=== PATIENT | female | born 1965 | race Caucasian/White ===

== ENCOUNTER → 2021-07-06 12:50 | Outpatient (BNVA) | payer MEDICAID, SELFPAY | PROVIDERS: Visit Provider Psychiatry & Neurology Psychiatry | DX: F41.9 Anxiety disorder, unspecified; F32.9 Major depressive disorder, single episode, unspecified; Z72.820 Sleep deprivation; H60.90 Unspecified otitis externa, unspecified ear | CPT/HCPCS: 99214 ==

== ENCOUNTER → 2021-07-20 16:00 | Outpatient (BNVA) | payer MEDICAID, SELFPAY | PROVIDERS: Visit Provider Family Medicine | DX: Z12.4 Encounter for screening for malignant neoplasm of cervix (principal) | CPT/HCPCS: 88175 ==

== ENCOUNTER 2021-10-08 17:37 | Emergency (ER) | payer MEDICAID, SELFPAY ==
[2021-10-08 17:46] VITALS: BP 147/73; PULSE 107; RESP 18; TEMP 36.6; O2SAT 95; BMI 40.2
[2021-10-08 19:02] LABS: Basophils # 0.1 10^3/uL (0.0-0.1); Basophils % 0.8 %; Eosinophils # 0.3 10^3/uL (0.0-0.8); Eosinophils % 3.7 %; Hematocrit 49.1 % (37.0-47.0); Hemoglobin 17.1 g/dL (11.5-15.3); Lymphocytes # 2.6 10^3/uL (0.8-4.8); Mean Corpuscular HGB Conc 34.8 g/dL (30.0-36.0); Mean Corpuscular Hemoglobin 30.5 pg (28.0-34.0); Mean Corpuscular Volume 87.5 fl (81-99); Mean Platelet Volume 9.9 fL (7.4-10.4); Monocytes # 0.7 10^3/uL (0.2-0.9); Monocytes % 7.8 %; Neutrophils % 57.4 %; Nucleated Red Blood Cells % 0 %; Platelet Count 273 10^3/cmm (130-400); Red Blood Count 5.61 10^6/uL (4.1-5.3); Red Cell Distribution Width 13.2 % (12.1-15.1); White Blood Count 8.7 10^3/uL (4.0-10.0)
[2021-10-08] MEDS: famotidine 20 mg/2 mL INJ IVP (19:03)
[2021-10-08 19:06] LABS: Erythrocyte Sedimentation Rate 19 mm/hr (0-15)
[2021-10-08 19:20] VITALS: BP 126/83; PULSE 65; RESP 20; O2SAT 99
[2021-10-08 19:20] LABS: Albumin Level 3.6 g/dL (3.5-5.2); Alkaline Phosphatase 93 IU/L (35-105); Blood Urea Nitrogen 9 mg/dL (6-20); C Reactive Protein 9.2 mg/L (0.0-4.9); Calcium 9.1 mg/dL (8.5-10.5); Carbon Dioxide 14 mmol/L (22-29); Chloride 101 mmol/L (98-107); Globulin 3.8 g/dL (1.3-4.6); Glomerular Filtration Rate 166.3 mL/min (90-130); Glucose 219 mg/dL (65-115); Osmolality Calculated 275 mOsm/kg (285-295); Sodium 130 mmol/L (136-145); Total Bilirubin 0.4 mg/dL (0.15-1.2); Total Protein 7.4 g/dL (6.6-8.7)
[2021-10-08 19:21] LABS: Alanine Aminotransferase 20 U/L (0-33); Anion Gap 19.1 (5-19); Aspartate Amino Transferase 18 U/L (0-32); Potassium 4.1 mmol/L (3.5-5.1)
--- NOTE | 2021-10-08 19:21 | PC.NURSE ---
pt refused visteral
[2021-10-08 19:41] LABS: INR 0.87 (0.8-1.2)
--- NOTE | 2021-10-08 20:01 | W.ED.WOUNDLC ---
HPI - Wound/Laceration General: Chief Complaint: Wound/Laceration Stated Complaint: Swelling in throat and sores on neck Time Seen by Provider: 10/08/21 17:48 Source: patient History of Present Illness: 55-year-old female who awoke this morning with a skin lesion on her neck on the anterior right side. It appeared to be an ulceration or a bite that she may have scratched during the night. Over the course of the day, the area became more red and swollen. She also developed a lump behind the right side of her jaw, and in the front part of her neck. She noticed a red line connecting the lump to the ulceration, which concerned her. No shortness of breath. She is handling her secretions fine. No tongue swelling. She notes that her neck is a bit itchy, and her upper extremities are as well. Onset (ago): hour(s) Location: neck Place: home Patient tetanus UTD: Yes Context: other Associated symptoms: Denies chills, fever(s), foreign body sensation, nausea, numbness or vomiting Review of Systems Const: Denies: fever(s) or chills Eyes: Denies: change in vision ENMT: Denies: throat pain, uvular edema or hoarseness Card: Denies: chest pain Resp: Denies: dyspnea or productive cough GI: Denies: nausea or vomiting Skin/Breast: Reports: rash, pruritus, erythema and skin tenderness PFSH ED PFSH: Medical History Allergic rhinitis due to allergen Anxiety and depression Asthma Barretts esophagus Diabetes type 2, uncontrolled Dyslipidemia Goiter Hiatal hernia History of hypertension Obesity (BMI 30-39.9) CORINNA (obstructive sleep apnea) Problems related to lack of adequate sleep Psychiatric care Smoker Women's annual routine gynecological examination Social History Smoking and tobacco status: current every day smoker cigarettes Packs smoked per day: 1 Years cigarettes smoked: 41 Physical Exam Const: COMMON NORMALS: no acute distress GENERAL APPEARANCE: cooperative HENMT: COMMON NORMALS: normocephalic and Normal external nose present HEAD & SCALP: normocephalic FACE & SINUS: normal facial exam NOSE: Normal external nose present and Normal nares present THROAT: no uvular edema Eye: COMMON NORMALS: Equal, round and reactive pupils present and EOMs intact bilaterally PUPIL: Yes Equal, round and reactive pupils present Neck/C-Spine: GENERAL: Yes lymphadenopathy Lymphadenopathy location: submental (anterior) and submandibular (Right) mobile and No tracheal deviation Chest: COMMONS NORMALS: normal inspection of the chest Resp: COMMON NORMALS: normal respiratory effort and No use of accessory muscles Cardio: COMMON NORMALS: regular rate and regular rhythm RATE: regular rate RHYTHM: regular rhythm Skin: NARRATIVE SKIN EXAM: Right anterior neck small skin ulceration with mild swelling surrounding. There is erythema surrounding as well. There is a right posterior submandibular lymph node that is minimally tender. It is mobile. There is an anterior node as well that is minimally tender and mobile. No signs of airway compromise. Course Vital Signs: Vital signs: Vital Signs Temperature 97.8 F 10/08/21 17:46 Pulse Rate 70 10/08/21 20:52 Respiratory Rate 20 H 10/08/21 20:52 Blood Pressure 149/86 10/08/21 20:52 Pulse Oximetry 98 10/08/21 20:52 MDM - Wound/Laceration Medical Decision Making See exam above. She requests no Benadryl, as the medication makes her extremely drowsy, and her legs twitchy. Atarax was ordered, but the patient declined this as well. She did receive Pepcid and Solu-Medrol with significant improvement in her symptoms. She notes that she can take cetirizine. This will be prescribed for her. Along with tapering dose of steroid to prevent rebound. Laboratory shows a white blood cell count of 8.7. Bicarbonate is low at 14. Sugar is 219. CRP is only 9. Sed rate is only 19. No thrombocytopenia or increase in INR. She will go home covered with antibiotics, on a decreasing dose of steroid, and cetirizine. Lab Data : 10/08/21 18:55 10/08/21 18:55 Laboratory Results WBC 8.7 10^3/uL (4.0-10.0) 10/08/21 18:55 RBC 5.61 10^6/uL (4.1-5.3) H 10/08/21 18:55 Hgb 17.1 g/dL (11.5-15.3) H 10/08/21 18:55 Hct 49.1 % (37.0-47.0) H 10/08/21 18:55 MCV 87.5 fl (81-99) 10/08/21 18:55 MCH 30.5 pg (28.0-34.0) 10/08/21 18:55 MCHC 34.8 g/dL (30.0-36.0) 10/08/21 18:55 RDW 13.2 % (12.1-15.1) 10/08/21 18:55 Plt Count 273 10^3/cmm (130-400) 10/08/21 18:55 MPV 9.9 fL (7.4-10.4) 10/08/21 18:55 Neut % (Auto) 57.4 % 10/08/21 18:55 Lymph % (Auto) 30.0 % 10/08/21 18:55 [facility] % (Auto) 7.8 % 10/08/21 18:55 Eos % (Auto) 3.7 % 10/08/21 18:55 Baso % (Auto) 0.8 % 10/08/21 18:55 Neut # (Auto) 5.00 10^3/uL (1.8-7.7) 10/08/21 18:55 Lymph # (Auto) 2.6 10^3/uL (0.8-4.8) 10/08/21 18:55 [facility] # (Auto) 0.7 10^3/uL (0.2-0.9) 10/08/21 18:55 Eos # (Auto) 0.3 10^3/uL (0.0-0.8) 10/08/21 18:55 Baso # (Auto) 0.1 10^3/uL (0.0-0.1) 10/08/21 18:55 Nucleated RBC % (auto) 0 % 10/08/21 18:55 Nucleated RBCs # 0.0 /100WBC 10/08/21 18:55 ESR 19 mm/hr (0-15) H 10/08/21 18:55 PT 12.10 SECONDS (12.1-14.9) 10/08/21 19:14 INR 0.87 (0.8-1.2) 10/08/21 19:14 Sodium 130 mmol/L (136-145) L 10/08/21 18:55 Potassium 4.1 mmol/L (3.5-5.1) 10/08/21 18:55 Chloride 101 mmol/L (98-107) 10/08/21 18:55 Carbon Dioxide 14 mmol/L (22-29) L 10/08/21 18:55 Anion Gap 19.1 (5-19) H 10/08/21 18:55 BUN 9 mg/dL (6-20) 10/08/21 18:55 Creatinine 0.4 mg/dL (0.5-0.9) L 10/08/21 18:55 GFR Calculation 166.3 mL/min (90-130) H 10/08/21 18:55 Glucose 219 mg/dL (65-115) H 10/08/21 18:55 Calculated Osmolality 275 mOsm/kg (285-295) L 10/08/21 18:55 Calcium 9.1 mg/dL (8.5-10.5) 10/08/21 18:55 Total Bilirubin 0.4 mg/dL (0.15-1.2) 10/08/21 18:55 AST 18 U/L (0-32) 10/08/21 18:55 ALT 20 U/L (0-33) 10/08/21 18:55 Alkaline Phosphatase 93 IU/L (35-105) 10/08/21 18:55 C-Reactive Protein 9.2 mg/L (0.0-4.9) H 10/08/21 18:55 Total Protein 7.4 g/dL (6.6-8.7) 10/08/21 18:55 Albumin 3.6 g/dL (3.5-5.2) 10/08/21 18:55 Globulin 3.8 g/dL (1.3-4.6) 10/08/21 18:55 Discharge Plan Discharge Patient Disposition: Home Clinical Impression: Lymphadenitis Condition: Stable Prescriptions: New Medrol (Frankie) 4 mg tablets,dose pack See Rx Instructions .ROUTE .COMPLEX Qty: 21 0RF Rx Instructions: orally per package directions Allergy Relief (cetirizine) 10 mg tablet 10 mg PO DAILY Qty: 10 0RF doxycycline hyclate 100 mg capsule 100 mg PO BID 7 Days Qty: 14 0RF No Action (DME) C-PAP supplies See Rx Instructions .Route .MEDSUPPLY Qty: 1 12RF Rx Instructions: As directed (DME) cpap supplies See Rx Instructions .Route .MEDSUPPLY Qty: 1 0RF Rx Instructions: needs water tub, tubing, resmed shallow face or floating face mask, rubber pieces, filters. (DME) poise pads See Rx Instructions .Route .MEDSUPPLY Qty: 100 0RF Rx Instructions: As directed (DME) Pharmacist Choice Strip See Rx Instructions .Route Qty: 50 5RF Rx Instructions: As directed. One touch ultra brand. cefdinir 300 mg capsule 300 mg PO BID Qty: 14 0RF Ed A-Hist DM 4-10-15 mg/5 mL liquid 5 ml PO Q6H PRN (Reason: cold symptoms) Qty: 160 0RF Bevespi Aerosphere 9-4.8 mcg HFA aerosol inhaler 2 puff inhalation BID 0RF albuterol 90 mcg/actuation aerosol inhalation DAILY PRN0RF fenugreek seed extract 500 mg capsule 3,000 mg PO TID 0RF pramoxine 1 % cream 1 applic topical QID 7 Days Qty: 340 0RF ciprofloxacin-dexamethasone [Ciprodex] 0.3-0.1 % drops,suspension 4 drp otic (ear) Q12H 0RF Label Comments: completed Rx Instructions: 340b alprazolam 0.5 mg tablet 0.5 mg PO BID PRN (Reason: anxiety) 30 Days Qty: 60 3RF bupropion HCl [Wellbutrin SR] 150 mg tablet sustained-release 12 hr 150 mg PO BID 30 Days Qty: 60 3RF zolpidem [Ambien] 10 mg tablet 15 mg PO .Bedtime 90 Days Qty: 135 3RF Discharge Orders: Discharge ED (Routine); Ordered 10/08/21 Ordered By: Earl Lind Referrals: Zoila Brennan MD [Primary Care Provider] - 1-3 days Patient Instructions: Lymphadenitis Activity Restrictions/Additional Instructions: Medications as directed. Return for worsening swelling despite treatment, shortness of breath, worsening rash or itching, fever greater than 100, any other concerning symptoms./ Coding Level of Care Code ED Full Stack Software Developer for Chg Fwd Exam Detailed
[2021-10-08] MEDS: doxycycline 100 mg Tablet PO (20:33)
--- NOTE | 2021-10-08 20:35 | PC.NURSE ---
pt wouldnt take the antibiotic wants to take it at home after eating dinner, offered vero but she has home made dinner
[2021-10-08 20:52] VITALS: BP 149/86; PULSE 70; RESP 20; O2SAT 98
== END 2021-10-08 20:52 | disposition home or self-care (01) ==
PROVIDERS: Emergency Provider Emergency Medicine; PCP Family Medicine
DX: I88.9 Nonspecific lymphadenitis, unspecified (principal); F17.210 Nicotine dependence, cigarettes, uncomplicated; E11.9 Type 2 diabetes mellitus without complications
CPT/HCPCS: 36415; 80053; 85025; 85610; 85651; 86140; 96374; 96375; 99284; J2930; J3490

== ENCOUNTER 2021-10-21 09:34 | Outpatient (CLI) | payer MEDICAID, SELFPAY ==
--- NOTE | 2021-10-21 09:44 | MM_ITS ---
WS: [id number] BILATERAL SCREENING DIGITAL BREAST TOMOSYNTHESIS MAMMOGRAM WITH CAD HISTORY: Z12.39 - Encounter for other screening for malignant neoplasm... COMPARISON: 04/05/2018 and 11/07/2015 Bilateral CC and MLO views with tomosynthesis and synthetic mammography submitted. Computer aided det ection analyzed. Breast composition: There are scattered areas of fibroglandular density. No suspicious masses, microc alcifications or architectural distortion. MM/[place] [id number] IMPRESSION: BI-RADS: 1-Negative FOLLOW UP: 1 Year Follow-up
== END 2021-10-21 09:35 | disposition home or self-care (01) ==
LOC: RADSHAW 09:38
PROVIDERS: PCP Family Medicine; Visit Provider Family Medicine
DX: Z12.31 Encounter for screening mammogram for malignant neoplasm of breast (principal)
CPT/HCPCS: 77063; 77067

== ENCOUNTER → 2021-11-02 10:20 | Outpatient (BNVA) | payer MEDICAID, SELFPAY | PROVIDERS: PCP Family Medicine; Visit Provider Internal Medicine Cardiovascular Disease | DX: I42.8 Other cardiomyopathies (principal); I10 Essential (primary) hypertension; E78.5 Hyperlipidemia, unspecified; J45.909 Unspecified asthma, uncomplicated; I44.7 Left bundle-branch block, unspecified; F17.210 Nicotine dependence, cigarettes, uncomplicated | CPT/HCPCS: 93005; 99204 ==

== ENCOUNTER → 2022-01-07 10:24 | Outpatient (BNVA) | payer MEDICAID, SELFPAY | PROVIDERS: PCP Family Medicine; Visit Provider Nurse Practitioner Family | DX: R59.9 Enlarged lymph nodes, unspecified (principal) | CPT/HCPCS: 85025 ==

== ENCOUNTER → 2022-01-11 13:56 | Outpatient (BNVA) | payer MEDICAID, SELFPAY | PROVIDERS: PCP Family Medicine; Visit Provider Internal Medicine Cardiovascular Disease | DX: I44.7 Left bundle-branch block, unspecified (principal); I42.8 Other cardiomyopathies; E78.5 Hyperlipidemia, unspecified; I10 Essential (primary) hypertension; G47.33 Obstructive sleep apnea (adult) (pediatric) | CPT/HCPCS: 99213; 99214 ==

== ENCOUNTER → 2022-01-13 15:36 | Outpatient (BNVA) | payer MEDICAID, SELFPAY | PROVIDERS: PCP Family Medicine; Visit Provider Surgery | DX: R22.30 Localized swelling, mass and lump, unspecified upper limb (principal) | CPT/HCPCS: 99203 ==

== ENCOUNTER 2022-02-04 06:02 | Outpatient (CLI) | payer MEDICAID, SELFPAY ==
--- NOTE | 2022-02-04 06:15 | US_ITS ---
WS: [id number] ULTRASOUND SOFT TISSUES LEFT axilla. HISTORY: Left Axillary Lymph Node COMPARISON: Mammogram 10/21/2021 and 04/05/2018 reviewed. TECHNIQUE: 2-D and color Doppler imaging is submitted. There is a complex mass with cystic and solid component in the LEFT axilla corresponding to the palpa ble abnormality. There is mild increased vascularity in the periphery and some the solid components. This mass extends over length of 3.4 cm x 3.7 x 2.3 cm. No additional abnormality identified. US/US soft tissue/extremity [id number] IMPRESSION: Complex cystic mass in the LEFT axilla. This may be an abnormal lymph node. May be reactive or neoplastic lymph node. As per history this lymph node is improv ing post antibiotic there. If this lymph node does not resolve biopsy or surgic al removal is recommended.
== END 2022-02-04 06:03 | disposition home or self-care (01) ==
LOC: RAD 06:05
PROVIDERS: PCP Family Medicine; Visit Provider Surgery
DX: R22.30 Localized swelling, mass and lump, unspecified upper limb (principal)
CPT/HCPCS: 76882

== ENCOUNTER 2022-02-07 06:12 | Outpatient (CLI) | payer MEDICAID, SELFPAY ==
--- NOTE | 2022-02-07 06:21 | USCV_ITS ---
Antonio Lantigua Age: 56 Gender: F : 1965 Exam Date: 02/07/2022 06:29 Ordering Phys: Miriam Fine MD ([email or web address]) Technologist: Exam Location: [facility] [place] Indication: cardiomyopathy BP: 130 / 80 HR: Rhythm: Sinus Technical Quality: Adequate MEASUREMENTS (Male / Female) Normal Values 2D ECHO LV Diastolic Diameter PLAX 3.1 cm 4.2 - 5.9 / 3.9 - 5.3 cm LV Systolic Diameter PLAX 2.3 cm IVS Diastolic Thickness 1.0 cm 0.6 - 1.0 / 0.6 - 0.9 cm IVS Systolic Thickness 1.1 cm LVPW Diastolic Thickness 1.0 cm 0.6 - 1.0 / 0.6 - 0.9 cm LVPW Systolic Thickness 1.5 cm LVOT Diameter 2.0 cm LV Ejection Fraction 2D Teich 56.1 % LV Ejection Fraction MOD 2C 65.2 % LV Ejection Fraction 2C AL 64.7 % LA Diameter 4.0 cm M-MODE Aortic Annulus Diameter 4.1 cm LA Ao Ratio MM 1.0 MV E Point Septal Separation 1.2 cm DOPPLER AV Peak Velocity 121.0 cm/s LVOT Peak Velocity 93.0 cm/s AV Area Cont Eq vti 2.6 cm squared AV Area Cont Eq pk 2.4 cm squared MV Area PHT 5.0 cm squared Mitral E to A Ratio 2.5 MV E' Velocity 54.0 cm/s Mitral E to MV E' Ratio 7.4 Mitral E to LV E' Lateral Ratio 9.1 Mitral E to LV E' Septal Ratio 6.2 TR Peak Velocity 140.0 cm/s TR Peak Gradient 7.8 mmHg TV Peak E Velocity 94.0 cm/s Right Atrial Pressure 3.0 mmHg Pulmonary Artery Systolic Pressu 10.8 mmHg PV Peak Velocity 88.0 cm/s FINDINGS Left Ventricle Normal left ventricular size and systolic function, EF 50 to 55% %( visual). Mild left ventricular hypertrophy. Abnormal septal motion consistent with conduction abnormality. Right Ventricle The right ventricle is normal in size and function. Right Atrium The right atrium is normal in size. Left Atrium The left atrium is normal in size. Mitral Valve Trace mitral valve regurgitation. Aortic Valve No gross abnormalities noted Tricuspid Valve Trace tricuspid valve regurgitation. Pulmonic Valve No gross abnormalities noted Pericardium Normal pericardium without effusion. Aorta Normal aortic annulus size. IVC Inferior vena cava not visualized. CONCLUSIONS Normal left ventricular size and systolic function, EF 61 %. Mild left ventricular hypertrophy. Abnormal septal motion consistent with conduction abnormality. Trace of mitral and tricuspid regurgitation. There is no pericardial effusion. There are no intracardiac masses. No previous study is available for comparison. Dr Miriam Fine MD FACC (Electronically Signed) Final Date: 07 February 2022 20:18 S
== END 2022-02-07 06:13 | disposition home or self-care (01) ==
LOC: RAD 06:12
PROVIDERS: PCP Family Medicine; Visit Provider Internal Medicine Cardiovascular Disease
DX: R06.00 Dyspnea, unspecified (principal); I42.9 Cardiomyopathy, unspecified; I08.1 Rheumatic disorders of both mitral and tricuspid valves
CPT/HCPCS: 93306

== ENCOUNTER 2022-02-22 07:21 | Emergency (ER) | payer MEDICAID, SELFPAY ==
[2022-02-22 07:24] VITALS: BP 155/84; PULSE 92; RESP 16; TEMP 36.4; O2SAT 95; BMI 35.8
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
--- NOTE | 2022-02-22 07:49 | ED_ITS ---
Documented by User: BENNIE Abdul 02/22/22 08:58 HPI - Extremity Problem General: Chief complaint: Extremity Injury, Lower Stated complaint: left foot injury Time Seen by Provider: 02/22/22 07:29 History of Present Illness: Patient is a 56-year-old female who comes to the ED with left foot injury. Injury occurred just prior to arrival. Patient says she was walking and accidentally kicked a box in her house and she heard an audible pop. She has pain in her second and third toes. Visible deformity and third toe. Patient took ibuprofen and Tylenol before coming to the ED. She states that her pain is currently 2 out of 10. Denies any other injuries. Associated symptoms: Deny chest pain, fever(s) or rash Review of Systems Const: Denies: fever(s), chills or fatigue Eyes: Denies: change in vision or eye discomfort ENMT: Denies: throat pain, odynophagia, nasal discharge or nasal congestion Card: Denies: chest pain, palpitations, edema, swelling of feet/ankles, dyspnea on exertion or orthopnea Resp: Denies: dyspnea, productive cough or non-productive cough GI: Denies: abdominal pain, nausea, vomiting, diarrhea, constipation or hematochezia : Denies: flank pain, dysuria or hematuria Musc: Reports: extremity pain (Left foot-second and third toes) and deformity (Left foot third toe); Denies: neck pain, back pain or extremity swelling Skin/Breast: Denies: rash or new lesions Neuro: Denies: headache(s), numbness in extremities or weakness in extremities PFS ED PFSH: Medical History Allergic rhinitis due to allergen Anxiety and depression Asthma Barretts esophagus Diabetes type 2, uncontrolled Dyslipidemia Goiter Hiatal hernia History of hypertension LBBB (left bundle branch block) Obesity (BMI 30-39.9) CORINNA (obstructive sleep apnea) Problems related to lack of adequate sleep Psychiatric care Smoker Women's annual routine gynecological examination Surgical History History of mandibular surgery History of placement of ear tubes History of repair of rectocele Hx of bladder repair surgery Hx of cholecystectomy Hx of hysterectomy Hx of oral surgery Family History Mother Anesthesia complication Cancer Lung disease Father CAD (coronary artery disease) Afib Diabetes Lung disease Grandmother Dementia Family/Other Lung disease Denies family history of Clotting disorder Chronic kidney disease (CKD) Suicide Bleeding disorder Stroke Social History Smoking and tobacco status: current every day smoker (1 ppd for 41 years. 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 Pets and animals: No Current gender identity: Female Female Reproductive History: Date of last menstrual period: 02/22/97 Physical Exam Const: COMMON NORMALS: no acute distress, patient oriented x3 and alert GENERAL APPEARANCE: cooperative and comfortable HENMT: COMMON NORMALS: normocephalic HEAD & SCALP: normocephalic MOUTH: Normal oral and palatal mucosa present THROAT: posterior oropharynx normal and uvula midline Neck/C-Spine: COMMON NORMALS: supple GENERAL: Yes normal visual inspection Resp: COMMON NORMALS: normal respiratory effort, No retractions, No use of accessory muscles and clear to auscultation bilaterally AUSCULTATION: clear to auscultation bilaterally Cardio: COMMON NORMALS: regular rate, regular rhythm, S1 normal heart sound present, S2 normal heart sound present, No gallops present (Cardio), No clicks present (Cardio), No murmurs present (Cardio) and Peripheral pulses 2+ throughout RATE: regular rate RHYTHM: regular rhythm HEART SOUNDS: S1 normal heart sound present and S2 normal heart sound present PERIPHERAL PULSES: Peripheral pulses 2+ throughout GI: COMMON NORMALS: Normal to inspection, nondistended, normoactive bowel sounds present, Soft to palpation, non-tender and no masses PALPATION: Yes Soft to palpation : COMMON NORMALS: Yes no CVA tenderness BLADDER/KIDNEY EXAM: Yes no CVA tenderness Back/Pelvis: COMMON NORMALS: no CVA tenderness Extremity: NARRATIVE EXTREMITY EXAM: Left foot?visible deformity seen on third toe. Tenderness to palpation of second and third toe. Neurovascular intact distally. Limited range of motion in toes due to pain. GENERAL: Yes normal exam except as noted and Yes deformity (Third toe) Neuro: COMMON NORMALS: patient oriented x3 SENSORIUM/ORIENTATION: Yes alert GAIT: Yes Normal gait present Skin: GENERAL SKIN EXAM: dry skin Procedures Orthopedic Fracture Reduction Fracture #1: Time Out Performed: Yes Side: left Fracture Reduction Location: toe (proximal phalanx) Analgesia: none (Patient declined any analgesia) Technique: direct manipulation Post Reduction X-rays Demonstrate: acceptable reduction Post-reduction neuro exam: intact Post-reduction vascular exam: intact Splint Applied: Yes (Aishwarya taped) Patient Tolerated Procedure: well Course Vital Signs: Vital signs: Vital Signs Temperature 97.5 F L 02/22/22 08:42 Pulse Rate 92 02/22/22 08:42 Respiratory Rate 16 02/22/22 08:42 Blood Pressure 155/84 02/22/22 08:42 Pulse Oximetry 95 02/22/22 08:42 MDM - Extremity (Nontraumatic) Medical Decision Making Patient is a 56-year-old female comes to the ED with injury to left foot. Patient kicked a box injuring second and third toe. Visible deformity seen in third toe. Neurovascular intact. Rest of exam is benign. X-ray of left foot showed an oblique fracture through proximal phalanx of third toe with some medial angulation. Patient did not want any analgesia and I reduced fracture with direct manipulation and then aishwarya tape second and third toe together. Post reduction x-rays performed and showed acceptable alignment. I placed an order with case management for patient be referred to podiatry for follow-up. Return to ED precautions given. Patient was put in a stiff soled shoe. Patient did not want any narcotics for pain and was discharged home and told to take [id number] Tylenol or ibuprofen as needed for pain. Patient understood and agreed with plan. Lab Data Radiology Impressions Foot X-Ray 02/22/22 08:06 IMPRESSION: Post reduction images with fracture fragments in proper position and alignment. Imaging Data Xray Ortho: My impression: Post reduction left foot x-ray?acceptable alignment. Radiologist's impression: Left foot x-ray. Oblique fracture through the proximal phalanx of the third toe with mild plantar and medial angulation Discharge Plan Discharge Patient Disposition: Home Clinical Impression: Fracture of toe of left foot Qualifiers: Encounter type: initial encounter Toe: lesser toe Fracture type: closed Phalanx: proximal Fracture alignment: displaced Qualified Code(s): S92.512A - Displaced fracture of proximal phalanx of left lesser toe(s), initial encounter for closed fracture Condition: Stable Prescriptions: No Action (DME) C-PAP supplies See Rx Instructions .Route .MEDSUPPLY Qty: 1 12RF Rx Instructions: As directed (DME) cpap supplies See Rx Instructions .Route .MEDSUPPLY Qty: 1 0RF Rx Instructions: needs water tub, tubing, resmed shallow face or floating face mask, rubber pieces, filters. (DME) poise pads See Rx Instructions .Route .MEDSUPPLY Qty: 100 0RF Rx Instructions: As directed alprazolam 0.5 mg tablet 0.5 mg PO BID PRN (Reason: anxiety) 30 Days Qty: 60 3RF bupropion HCl [Wellbutrin SR] 150 mg tablet sustained-release 12 hr 150 mg PO BID 30 Days Qty: 60 3RF zolpidem [Ambien] 10 mg tablet 15 mg PO .Bedtime 90 Days Qty: 135 3RF doxycycline hyclate 100 mg tablet 100 mg PO BID 7 Days Qty: 14 0RF amoxicillin-pot clavulanate 875-125 mg tablet 1 tab PO BID 10 Days Qty: 20 0RF acetaminophen [Tylenol] 325 mg tablet 325 mg PO QID PRN ibuprofen 200 mg tablet 200 mg PO Q6H PRN hawthorn 500 mg capsule 500 mg PO DAILY garlic Tablet 300 mg PO DAILY cholecalciferol (vitamin D3) 25 mcg (1,000 unit) capsule 25 mcg PO DAILY cinnamon bark [Cinnamon] 500 mg capsule 500 mg PO DAILY turmeric 400 mg capsule 400 mg PO DAILY vitamin K2 100 mcg capsule 100 mcg PO DAILY (DME) OneTouch Ultra Test Strip See Rx Instructions .ROUTE .COMPLEX Qty: 150 0RF Dose Instruction: test DIRECTED THREE TIMES DAILY Rx Instructions: test DIRECTED THREE TIMES DAILY Discharge Orders: Discharge ED (Routine); Ordered 02/22/22 Ordered By: Edgar Stephens Referrals: Zoila Brennan MD [Primary Care Provider] - Discharge Diet: Regular Discharge Activity: Limit activity as instructed and Use walker/crutches as instructed Patient Instructions: Toe Fracture (ED) Activity Restrictions/Additional Instructions: Follow-up with medical provider as directed. Case management regarding in the next several days to set up an appointment with podiatry for follow-up and further management of toe fracture. Wear stiff soled shoe when ambulating. Use ambulation device as needed to limit weightbearing due to pain the next couple days. Take [id number] Tylenol or ibuprofen for pain. Return to the ER or your medical provider if condition worsens. Please read and understand discharge instructions. Thank you for choosing [facility] for your healthcare needs today. Please realize this is an emergency room and that we are providing you with a medical screening exam and this may not be complete and all inclusive of all the testing and or work up that you may need to determine your ailment or severity of your illness. It is very important that you follow up as instructed or that you return to the Emergency Department should you have concerns or if your condition changes or worsens in any way. Coding Level of Care Code ED Senior Major Gifts Officer for Chg Fwd Exam Comprehensive Documented by User: Ramos Navarro DO 02/22/22 13:38 HPI - Extremity Problem General: Chief complaint: Extremity Injury, Lower Stated complaint: left foot injury Time Seen by Provider: 02/22/22 07:29 [facility] ED PFS: Medical History Allergic rhinitis due to allergen Anxiety and depression Asthma Barretts esophagus Diabetes type 2, uncontrolled Dyslipidemia Goiter Hiatal hernia History of hypertension LBBB (left bundle branch block) Obesity (BMI 30-39.9) CORINNA (obstructive sleep apnea) Problems related to lack of adequate sleep Psychiatric care Smoker Women's annual routine gynecological examination Surgical History History of mandibular surgery History of placement of ear tubes History of repair of rectocele Hx of bladder repair surgery Hx of cholecystectomy Hx of hysterectomy Hx of oral surgery Family History Mother Anesthesia complication Cancer Lung disease Father CAD (coronary artery disease) Afib Diabetes Lung disease Grandmother Dementia Family/Other Lung disease Denies family history of Clotting disorder Chronic kidney disease (CKD) Suicide Bleeding disorder Stroke Social History Smoking and tobacco status: current every day smoker (1 ppd for 41 years. 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 Patient kicked a box injuring second and third toe. Visible deformity seen in third toe. Neurovascular intact. Rest of exam is benign. X-ray of left foot showed an oblique fracture through proximal phalanx of third toe with some medial angulation. Patient did not want any analgesia and I reduced fracture with direct manipulation and then aishwarya tape second and third toe together. Post reduction x-rays performed and showed acceptable alignment. I placed an order with case management for patient be referred to podiatry for follow-up. Return to ED precautions given. Patient was put in a stiff soled shoe. Patient did not want any narcotics for pain and was discharged home and told to take [id number] Tylenol or ibuprofen as needed for pain. Patient understood and agreed with plan. Chart reviewed and patient discussed with midlevel. Agree with assessment and plan. Lab Data Radiology Impressions Foot X-Ray 02/22/22 08:06 IMPRESSION: Post reduction images with fracture fragments in proper position and alignment. Discharge Plan Discharge Patient Disposition: Home Clinical Impression: Fracture of toe of left foot Qualifiers: Encounter type: initial encounter Toe: lesser toe Fracture type: closed Phalanx: proximal Fracture alignment: displaced Qualified Code(s): S92.512A - Displaced fracture of proximal phalanx of left lesser toe(s), initial encounter for closed fracture Condition: Stable Prescriptions: No Action (DME) C-PAP supplies See Rx Instructions .Route .MEDSUPPLY Qty: 1 12RF Rx Instructions: As directed (DME) cpap supplies See Rx Instructions .Route .MEDSUPPLY Qty: 1 0RF Rx Instructions: needs water tub, tubing, resmed shallow face or floating face mask, rubber pieces, filters. (DME) poise pads See Rx Instructions .Route .MEDSUPPLY Qty: 100 0RF Rx Instructions: As directed alprazolam 0.5 mg tablet 0.5 mg PO BID PRN (Reason: anxiety) 30 Days Qty: 60 3RF bupropion HCl [Wellbutrin SR] 150 mg tablet sustained-release 12 hr 150 mg PO BID 30 Days Qty: 60 3RF zolpidem [Ambien] 10 mg tablet 15 mg PO .Bedtime 90 Days Qty: 135 3RF doxycycline hyclate 100 mg tablet 100 mg PO BID 7 Days Qty: 14 0RF amoxicillin-pot clavulanate 875-125 mg tablet 1 tab PO BID 10 Days Qty: 20 0RF acetaminophen [Tylenol] 325 mg tablet 325 mg PO QID PRN ibuprofen 200 mg tablet 200 mg PO Q6H PRN hawthorn 500 mg capsule 500 mg PO DAILY garlic Tablet 300 mg PO DAILY cholecalciferol (vitamin D3) 25 mcg (1,000 unit) capsule 25 mcg PO DAILY cinnamon bark [Cinnamon] 500 mg capsule 500 mg PO DAILY turmeric 400 mg capsule 400 mg PO DAILY vitamin K2 100 mcg capsule 100 mcg PO DAILY (DME) OneTouch Ultra Test Strip See Rx Instructions .ROUTE .COMPLEX Qty: 150 0RF Dose Instruction: test DIRECTED THREE TIMES DAILY Rx Instructions: test DIRECTED THREE TIMES DAILY Discharge Orders: Discharge ED (Routine); Ordered 02/22/22 Ordered By: Edgar Stephens Referrals: Zoila Brennan MD [Primary Care Provider] - Discharge Diet: Regular Discharge Activity: Limit activity as instructed and Use walker/crutches as instructed Patient Instructions: Toe Fracture (ED) Activity Restrictions/Additional Instructions: Follow-up with medical provider as directed. Case management regarding in the next several days to set up an appointment with podiatry for follow-up and further management of toe fracture. Wear stiff soled shoe when ambulating. Use ambulation device as needed to limit weightbearing due to pain the next couple days. Take [id number] Tylenol or ibuprofen for pain. Return to the ER or your medical provider if condition worsens. Please read and understand discharge instructions. Thank you for choosing [facility] for your healthcare needs today. Please realize this is an emergency room and that we are providing you with a medical screening exam and this may not be complete and all inclusive of all the testing and or work up that you may need to determine your ailment or severity of your illness. It is very important that you follow up as instructed or that you return to the Emergency Department should you have concerns or if your condition changes or worsens in any way. Coding Level of Care Code ED Senior Major Gifts Officer for Pete Bustos Exam Comprehensive
--- NOTE | 2022-02-22 08:06 | XR_ITS ---
WS: [id number] XR foot LT 2V [id number] REASON FOR EXAM: Post reduction x-rays FINDINGS: Angulation at the previously described fracture site in the proximal third phalanx has been reduced. Fracture fragments are in proper position and alignment. No additional fragments identified. XR/XR foot LT 2V [id number] IMPRESSION: Post reduction images with fracture fragments in proper position and alignment.
[2022-02-22 08:42] VITALS: BP 155/84; PULSE 92; RESP 16; TEMP 36.4; O2SAT 95
--- NOTE | 2022-02-22 14:49 | DCPLANNER ---
Addendum entered by Vivi Khoury 03/04/22 08:39: Patient had a follow up appointment scheduled with ortho - patient did attend appointment Addendum entered by Vivi Khoury 02/23/22 12:36: Patient has a follow up appointment scheduled for , February 24, 2022 at 10:[address] Holcomb. Clinic will call patient with appointment information. Original Note: consulting technical manager had message to schedule a follow up appointment for patient with ortho. consulting technical manager sent patients information to the front office staff at ortho. Patients information will be printed and reviewed. Clinic will call patient with appointment information.
== END 2022-02-22 08:44 | disposition home or self-care (01) ==
PROVIDERS: Emergency Provider Family Medicine; PCP Family Medicine
DX: S92.512A Displaced fracture of proximal phalanx of left lesser toe(s), initial encounter for closed fracture (principal); F17.210 Nicotine dependence, cigarettes, uncomplicated; E11.9 Type 2 diabetes mellitus without complications; E78.5 Hyperlipidemia, unspecified; I10 Essential (primary) hypertension; W22.8XXA Striking against or struck by other objects, initial encounter
CPT/HCPCS: 28515; 73620; 73630; 99283

== ENCOUNTER → 2022-03-24 13:05 | Outpatient (BNVA) | payer MEDICAID, SELFPAY | PROVIDERS: PCP Family Medicine; Visit Provider Podiatrist Foot & Ankle Surgery | DX: S92.505A Nondisplaced unspecified fracture of left lesser toe(s), initial encounter for closed fracture (principal); W22.09XA Striking against other stationary object, initial encounter | CPT/HCPCS: 73630 ==

== ENCOUNTER → 2022-04-27 10:26 | Outpatient (BNVA) | payer MEDICAID, SELFPAY | PROVIDERS: PCP Family Medicine; Visit Provider Podiatrist Foot & Ankle Surgery | DX: S92.502D Displaced unspecified fracture of left lesser toe(s), subsequent encounter for fracture with routine healing (principal); W22.8XXD Striking against or struck by other objects, subsequent encounter | CPT/HCPCS: 73630 ==

== ENCOUNTER 2022-09-05 18:55 | Emergency (ER) | payer MEDICAID, SELFPAY ==
[2022-09-05 19:03] VITALS: BP 158/93; PULSE 95; RESP 14; TEMP 36.9; O2SAT 96
--- NOTE | 2022-09-05 19:20 | W.ED.EYEPROB ---
HPI - Eye Problem General: Chief complaint: Eye Problems Stated complaint: R eye pain Time Seen by Provider: 09/05/22 19:09 History of Present Illness: 56-year-old female comes in today with complaints of swelling and drainage from the right eye. Patient reports increased swelling starting about 1:00 this afternoon to the eye. Patient has reported some sinusitis symptoms for the last 3 days. Patient appears nontoxic. Patient appears no acute distress. Patient does have a history of diabetes, sleep apnea, COPD, cardiomyopathy, asthma, hiatal hernia, and obesity. Associated symptoms: Denies fever(s), neck pain or vomiting Review of Systems Const: Denies: fever(s) Eyes: Reports: eye discharge ENMT: Reports: nasal congestion and other (Sinus pain) Card: Denies: chest pain Resp: Denies: dyspnea GI: Denies: vomiting Musc: Denies: neck pain or back pain Skin/Breast: Denies: rash PFSH ED PFSH: Medical History Allergic rhinitis due to allergen Anxiety and depression Asthma Barretts esophagus Diabetes type 2, uncontrolled Dyslipidemia Goiter Hiatal hernia History of hypertension LBBB (left bundle branch block) Obesity (BMI 30-39.9) CORINNA (obstructive sleep apnea) Problems related to lack of adequate sleep Psychiatric care Smoker Women's annual routine gynecological examination Surgical History History of mandibular surgery History of placement of ear tubes History of repair of rectocele Hx of bladder repair surgery Hx of cholecystectomy Hx of hysterectomy Hx of oral surgery Family History Mother Anesthesia complication Cancer Lung disease Father CAD (coronary artery disease) Afib Diabetes Lung disease Grandmother Dementia Family/Other Lung disease Denies family history of Clotting disorder Chronic kidney disease (CKD) Suicide Bleeding disorder Stroke Social History Smoking and tobacco status: current every day smoker cigarettes Packs smoked per day: 1 Years cigarettes smoked: 41 Alcohol intake: never Adopted: No Household members: spouse and children Housing: House Marital status: Highest education level completed: Some College, No Degree service: No Current occupational status: employed 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 Pets and animals: No Current gender identity: Female Physical Exam Const: COMMON NORMALS: alert HENMT: COMMON NORMALS: normocephalic HEAD & SCALP: normocephalic FACE & SINUS: sinus tenderness NOSE: Normal nares present MOUTH: Normal oral and palatal mucosa present Eye: COMMON NORMALS: Equal, round and reactive pupils present GENERAL EYE: normal light reflex ALIGNMENT: Yes alignment normal CONJUNCTIVA: Yes conjunctival abnormal positive right conjunctival injection CORNEA: Yes other (Chemosis right eye) PUPIL: Yes Equal, round and reactive pupils present DIRECT OPHTHALMOSCOPY: Yes normal light reflex Neck/C-Spine: COMMON NORMALS: full ROM Resp: COMMON NORMALS: normal respiratory effort Cardio: COMMON NORMALS: regular rate RATE: regular rate GI: COMMON NORMALS: non-tender Extremity: COMMON NORMALS: normal to inspection Neuro: SENSORIUM/ORIENTATION: Yes alert Skin: COMMON NORMALS: turgor normal GENERAL SKIN EXAM: turgor normal Course Vital Signs: Vital signs: Vital Signs Temperature 98.4 F 09/05/22 19:03 Pulse Rate 95 09/05/22 19:03 Respiratory Rate 14 09/05/22 19:03 Blood Pressure 158/93 09/05/22 19:03 Pulse Oximetry 96 09/05/22 19:03 Oxygen Delivery Me thod 09/05/22 19:03 MDM - Eye Problem Medical Decision Making 56-year-old female comes in today with complaints of redness and swelling to the right eye. On exam patient has ecchymosis to the right eye with yellowish discharge. No significant redness surrounding the eye. Minimal swelling is noted to the lids of the eye. Pupils are equal and reactive. Funduscopy exam was normal. Bilateral TMs show some fluid behind them. Patient has sinus tenderness bilaterally. Respirations are even lungs are clear to auscultation. Vital signs are normal. Differential diagnosis includes but not limited to chemosis, allergic reaction, rhinosinusitis. We will treat patient for a sinus infection with her complaints of sinus pain and discharge. Patient be covered with steroid/antibiotic to the right eye for secondary conjunctivitis. Patient reported understanding agreed to plan. Discharge Plan Discharge Patient Disposition: Home Clinical Impression: Acute rhinosinusitis, Chemosis of right conjunctiva Condition: Stable Prescriptions: New cefdinir 300 mg capsule 300 mg PO BID 10 Days Qty: 20 0RF No Action (DME) C-PAP supplies See Rx Instructions .Route .MEDSUPPLY Qty: 1 12RF Rx Instructions: As directed (DME) cpap supplies See Rx Instructions .Route .MEDSUPPLY Qty: 1 0RF Rx Instructions: needs water tub, tubing, resmed shallow face or floating face mask, rubber pieces, filters. (DME) poise pads See Rx Instructions .Route .MEDSUPPLY Qty: 100 0RF Rx Instructions: As directed acetaminophen [Tylenol] 325 mg tablet 325 mg PO QID PRN ibuprofen 200 mg tablet 200 mg PO Q6H PRN garlic Tablet 300 mg PO DAILY cholecalciferol (vitamin D3) 25 mcg (1,000 unit) capsule 25 mcg PO DAILY cinnamon bark [Cinnamon] 500 mg capsule 500 mg PO DAILY turmeric 400 mg capsule 400 mg PO DAILY vitamin K2 100 mcg capsule 100 mcg PO DAILY (DME) sleep apnea machine with supplies See Rx Instructions .Route .MEDSUPPLY Qty: 1 0RF Rx Instructions: As directed. pressure at 8.4. ramp time 0. epr time maritime officer. epr level 1. ab filter no. (DME) OneTouch Ultra Test Strip See Rx Instructions .ROUTE .COMPLEX Qty: 150 0RF Dose Instruction: test DIRECTED THREE TIMES DAILY Rx Instructions: test DIRECTED THREE TIMES DAILY (DME) blood-glucose meter [Accu-Chek Guide Glucose Meter] [facility] [place] See Rx Instructions .Route Qty: 1 0RF Rx Instructions: As directed zolpidem [Ambien] 10 mg tablet 15 mg PO .Bedtime 90 Days Qty: 135 3RF alprazolam 0.5 mg tablet 0.5 mg PO BID PRN (Reason: anxiety) 15 Days Qty: 30 0RF bupropion HCl [Wellbutrin SR] 150 mg tablet sustained-release 12 hr 150 mg PO BID 30 Days Qty: 60 0RF Discharge Orders: Discharge ED (Routine); Ordered 09/05/22 Ordered By: Pardeep Vallejo Referrals: Zoila Brennan MD [Primary Care Provider] - Discharge Diet: Usual diet Discharge Activity: Increase activity as tolerated Patient Instructions: Rhinosinusitis (ED), Conjunctivitis (ED) Activity Restrictions/Additional Instructions: Continue antibiotics cefdinir 300 mg 2 times a day for the next 7 to 10 days. Take Claritin 1 or 2 tablets twice a day to help with swelling around the eye. Drink plenty of water with medication. Continue eyedrops 1 drop to the affected eye 4 times a day while awake for the next 7 days. Return to ER for high fever greater than 100.4, increasing swelling and redness around the eye, severe pain, or new concerns. Coding Level of Care Code ED Managing Principal for Pete Bustos
[2022-09-05] MEDS: cefdinir 300 MG CAPSULE PO (19:41)
[2022-09-05] MEDS: loratadine 10 mg Tablet 20 MG PO (19:41)
[2022-09-05] MEDS: dexamethasone 4 mg Tablet 10 MG PO (19:41)
[2022-09-05] MEDS: famotidine 20 mg Tablet PO (19:41)
[2022-09-05] MEDS: neomycin-poly-dex Op 5 mL Btl 2 DROP EYE-RIGHT (19:58)
== END 2022-09-05 19:59 | disposition home or self-care (01) ==
PROVIDERS: Emergency Provider Nurse Practitioner Family; PCP Family Medicine
DX: H11.421 Conjunctival edema, right eye (principal); J01.90 Acute sinusitis, unspecified; F17.210 Nicotine dependence, cigarettes, uncomplicated; E11.9 Type 2 diabetes mellitus without complications; E78.5 Hyperlipidemia, unspecified; I10 Essential (primary) hypertension
CPT/HCPCS: 99283; J8540

== ENCOUNTER → 2022-10-06 14:41 | Outpatient (BNVA) | payer MEDICAID, SELFPAY | PROVIDERS: PCP Family Medicine; Visit Provider Nurse Practitioner Family | DX: J02.9 Acute pharyngitis, unspecified (principal); J32.9 Chronic sinusitis, unspecified; H10.9 Unspecified conjunctivitis | CPT/HCPCS: 87071; 87880 ==

== ENCOUNTER 2022-10-24 15:07 | Outpatient (CLI) | payer MEDICAID, SELFPAY ==
--- NOTE | 2022-10-24 15:00 | CT_ITS ---
WS: [id number] CT SINUSES TECHNIQUE: Noncontrast CT of the paranasal sinuses with coronal and sagittal reformatted images. CLINICAL INFORMATION: J32.9 - Chronic sinusitis, unspecified COMPARISON: None. DLP: 311.[address] scans at [facility] use at least one of these dose optimization techniques: automated e xposure control; mA and/or kV adjustment per patient size (includes targeted exams where dose is matc hed to clinical indication); or iterative reconstruction. FINDINGS: Mastoid air cells well aerated. Normal posterior nasopharynx and parapharyngeal fat. Fluid with secre tions in the RIGHT maxillary sinus compatible with sinusitis. 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 Prior bilateral maxillary antrostomies. Chronic appearing dehiscence of the inferior lateral wall of the RIGHT maxillary sinus likely due to prior trauma and p ostoperative changes. Additional postoperative fixation the anterior lateral LEFT maxillary sinus. Wire fixation along the anterior process of the maxilla bilaterally extending into the anterior maxil la. Frontal sinuses are well aerated. Mild mucosal thickening ethmoid air cells. Mild narrowing of th e ostiomeatal units RIGHT greater than LEFT with mild mucosal thickening. Sphenoid sinuses are patent . Nasal septum is midline likely due to prior septoplasty. Partially visualized intracranial contents are normal. CT/CT sinus wo con* [id number] IMPRESSION: 1. Evidence of prior maxillary antrostomies with septoplasty. Wire fixation in volving the anterior process of the maxilla bilaterally. This extends into the anterior maxilla. Additional fixation LEFT lateral maxillary sinus. 2. Hypoplastic RIGHT maxillary sinus with dehiscence of the inferior lateral w all likely due to prior postoperative changes or trauma. Sinusitis in the RIGHT maxillary sinus. 3. Paranasal sinuses are otherwise well aerated. Mild mucosal thickening in th e ethmoid air cells. 4. Mastoid air cells well aerated. 5. Prior septoplasty.
== END 2022-10-24 15:08 | disposition home or self-care (01) ==
LOC: RAD 15:10
PROVIDERS: PCP Family Medicine; Visit Provider Nurse Practitioner Family
DX: J32.0 Chronic maxillary sinusitis (principal); M26.02 Maxillary hypoplasia; Z98.890 Other specified postprocedural states
CPT/HCPCS: 70486

== ENCOUNTER 2022-11-20 13:09 | Emergency (ER) | payer MEDICAID, SELFPAY ==
--- NOTE | 2022-11-20 13:11 | XRR_ITS ---
PROCEDURE INFORMATION: Exam: XR Facial Bones, Minimum of 3 Views, Complete Exam date and time: 11/20/2022 1:52 PM Age: 57 years old Clinical indication: Injury or trauma; Fall; Blunt trauma (contusions or hematomas); Nose; Additional info: Possible broken nose TECHNIQUE: Imaging protocol: XR of the facial bones, minimum of 3 views. Complete exam. COMPARISON: CT sinus wo con* [id number] 10/24/2022 3:25 PM FINDINGS: Sinuses: Well aerated. No opacification. Bones/joints: No fracture. Soft tissues: Unremarkable. XR/XR facial bones min 3V* [id number] IMPRESSION: Unremarkable.
[2022-11-20 13:13] VITALS: BP 137/83; PULSE 106; RESP 14; TEMP 36.7; O2SAT 94; BMI 38.0
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
[2022-11-20] MEDS: ibuprofen 800 mg tablet PO (13:33)
[2022-11-20 13:38] VITALS: BP 132/87; PULSE 99; O2SAT 93
[2022-11-20 15:27] VITALS: BP 142/94; PULSE 92; O2SAT 90
== END 2022-11-20 15:31 | disposition home or self-care (01) ==
PROVIDERS: Emergency Provider Physician Assistant; PCP Family Medicine
DX: S00.33XA Contusion of nose, initial encounter (principal); Y04.2XXA Assault by strike against or bumped into by another person, initial encounter; Y92.009 Unspecified place in unspecified non-institutional (private) residence as the place of occurrence of the external cause
CPT/HCPCS: 70150; 99283

== ENCOUNTER → 2023-03-29 15:19 | Outpatient (BNVA) | payer MEDICAID, SELFPAY | PROVIDERS: PCP Family Medicine; Visit Provider Nurse Practitioner Family | DX: R10.11 Right upper quadrant pain; R10.811 Right upper quadrant abdominal tenderness; R10.31 Right lower quadrant pain; R10.813 Right lower quadrant abdominal tenderness; K52.9 Noninfective gastroenteritis and colitis, unspecified; J40 Bronchitis, not specified as acute or chronic; E78.5 Hyperlipidemia, unspecified; E11.65 Type 2 diabetes mellitus with hyperglycemia; J32.9 Chronic sinusitis, unspecified | CPT/HCPCS: 80053; 80061; 82150; 83036; 83690; 83721 ==

== ENCOUNTER 2023-04-04 06:06 | Outpatient (CLI) | payer MEDICAID, SELFPAY ==
--- NOTE | 2023-04-04 06:30 | US_ITS ---
WS: [id number] Complete ABDOMINAL ULTRASOUND HISTORY: right sided ABD pain COMPARISON: None available. Liver: 17.1 cm in length. Very mildly enlarged liver. There are areas of fatty sparing within the adeola er. No bile duct dilatation and no mass. Portal Vein: Normal hepatopetal flow with monophasic waveform. Gallbladder: Prior cholecystectomy prior CBD: 0.4 cm Pancreas: Normal size and echogenicity. Right kidney: 11.4 cm x 5.9 x 4.9 cm. Cortex: 1.2 cm. Normal size and echogenicity. No hydronephrosis or mass. Left kidney: 12.4 cm x 6.5 cm x 6.4 cm. Cortex: 1.2 cm. Normal size and echogenicity. No hydronephrosis or mass. Spleen: 10.5 cm in length. Normal. Aorta and IVC: Unremarkable abdominal aorta and IVC. Impression: 1. Prior cholecystectomy. 2. Top normal size liver with areas of fatty sparing. 3. No renal obstruction.
== END 2023-04-04 06:07 | disposition home or self-care (01) ==
PROVIDERS: PCP Family Medicine; Visit Provider Nurse Practitioner Family
DX: R10.11 Right upper quadrant pain (principal); R10.31 Right lower quadrant pain; R10.811 Right upper quadrant abdominal tenderness; R10.813 Right lower quadrant abdominal tenderness
CPT/HCPCS: 76700

== ENCOUNTER 2023-04-10 06:02 | Outpatient (CLI) | payer MEDICAID, SELFPAY ==
--- NOTE | 2023-04-10 06:30 | CT_ITS ---
WS: [id number] CT SINUSES TECHNIQUE: Noncontrast CT of the paranasal sinuses with coronal and sagittal reformatted images. CLINICAL INFORMATION: chronic sinusitis COMPARISON: 10/24/2022 DLP: 358.[address] scans at [facility] use at least one of these dose optimization techniques: automated e xposure control; mA and/or kV adjustment per patient size (includes targeted exams where dose is matc hed to clinical indication); or iterative reconstruction. FINDINGS: Prior bilateral maxillary antrostomies. Chronic appearing dehiscence of the inferior lateral wall of the RIGHT maxillary sinus likely due to prior trauma and postoperative changes. Additional postoperat sofi fixation the anterior lateral LEFT maxillary sinus. Wire fixation along the anterior process of t he maxilla bilaterally extending into the anterior maxilla. Fluid with secretions in the RIGHT maxillary sinus has improved compared to previous. Hypoplastic RIG HT maxillary sinus with evidence of prior posttraumatic deformity. Frontal sinuses are well aerated. Mild mucosal thickening ethmoid air cells. Mild narrowing of the ostiomeatal units RIGHT greater jesus n LEFT with mild mucosal thickening. Sphenoid sinuses are patent. Nasal septum is midline likely due to prior septoplasty. Mild mucosal thickening RIGHT mastoid tip. LEFT mastoid air cells are well aerated. Normal posterior nasopharynx and parapharyngeal fat. Partially visualized intracranial contents are normal. IMPRESSION: 1. Evidence of prior maxillary antrostomies with septoplasty. Wire fixation involving the anterior p rocess of the maxilla bilaterally. This extends into the anterior maxilla. 2. Additional fixation LEFT lateral maxillary sinus. Hypoplastic RIGHT maxillary sinus with dehiscen ce of the inferior lateral wall likely due to prior postoperative changes or trauma. 3. Improved sinusitis in the RIGHT maxillary sinus with mild mucosal thickening and a small mount of fluid. 4. Paranasal sinuses are otherwise well aerated. 5. Mild mucosal thickening RIGHT mastoid tip. 6. Prior septoplasty.
== END 2023-04-10 06:03 | disposition home or self-care (01) ==
LOC: RAD 06:03
PROVIDERS: PCP Family Medicine; Visit Provider Otolaryngology
DX: J32.0 Chronic maxillary sinusitis (principal); J32.9 Chronic sinusitis, unspecified; Z98.890 Other specified postprocedural states
CPT/HCPCS: 70486

== ENCOUNTER 2023-06-14 13:38 | Emergency (ER) | payer MEDICAID, SELFPAY ==
[2023-06-14 13:44] VITALS: BP 128/87; PULSE 102; RESP 18; TEMP 36.6; O2SAT 94; BMI 35.8
--- NOTE | 2023-06-14 13:51 | XR_ITS ---
WS: [id number] Chest with right rib detail, chest with right rib detail, 5 views, 06/14/2023 Clinical Data: injury Comparison: None. Findings: The lungs show no nodules, masses, or effusions. The heart is normal. No pneumonia or pneumothorax is seen. The aortic arch shows minimal calcification. The ribs are intact. No rib fractures seen. No subcutaneous emphysema is present. There are cholecystectomy clips in the right upper quadrant. Impression: Negative chest with right rib detail.
--- NOTE | 2023-06-14 14:30 | ED_ITS ---
HPI - General Adult General: Chief complaint: Abdominal Pain Stated complaint: abd pain right side Time Seen by Provider: 06/14/23 14:29 History of Present Illness: 57-year-old female comes in today for co mplaints of right anterior rib pain. Patient reports that she leaned over her chair to get something off the floor and felt several pops in her ribs. Since then patient has had pain and discomfort to the right anterior ribs. Patient appears nontoxic. Patient appears in no acute distress. Patient appears in mild to moderate pain. Review of Systems General: Reports: 10 or more systems reviewed and unremarkable except in HPI and below Musc: Reports: other (Right rib pain) PFS ED PFSH: Medical History Allergic rhinitis due to allergen Anxiety and depression Asthma Barretts esophagus Diabetes type 2, uncontrolled Dyslipidemia Goiter Hiatal hernia History of hypertension LBBB (left bundle branch block) Obesity (BMI 30-39.9) CORINNA (obstructive sleep apnea) Problems related to lack of adequate sleep Psychiatric care Smoker Women's annual routine gynecological examination Surgical History History of mandibular surgery History of placement of ear tubes History of repair of rectocele Hx of bladder repair surgery Hx of cholecystectomy Hx of hysterectomy Hx of oral surgery Family History Mother Anesthesia complication Cancer Lung disease Father CAD (coronary artery disease) Afib Diabetes Lung disease Grandmother Dementia Family/Other Lung disease Denies family history of Clotting disorder Chronic kidney disease (CKD) Suicide Bleeding disorder Stroke Social History Smoking and tobacco/nicotine status: current every day tobacco/nicotine user cigarettes Packs smoked per day: 1 Years cigarettes smoked: 41 Alcohol intake: never Substance/Drug Use: unknown Adopted: No Household members: spouse and children Housing: House Marital status: Highest education level completed: Some College, No Degree service: No Current occupational status: employed 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 Pets and animals: No Current gender identity: Female Physical Exam Const: COMMON NORMALS: alert HENMT: COMMON NORMALS: normocephalic HEAD & SCALP: normocephalic Neck/C-Spine: COMMON NORMALS: full ROM Resp: COMMON NORMALS: normal respiratory effort Cardio: COMMON NORMALS: regular rate RATE: regular rate Back/Pelvis: COMMON NORMALS: thoracic and lumbar spine normal to inspection Extremity: COMMON NORMALS: normal to inspection Neuro: SENSORIUM/ORIENTATION: Yes alert Skin: COMMON NORMALS: turgor normal GENERAL SKIN EXAM: turgor normal Course Vital Signs: Vital signs: Vital Signs Temperature 98 F 06/14/23 13:44 Pulse Rate 102 H 06/14/23 13:44 Respiratory Rate 18 06/14/23 13:44 Blood Pressure 128/87 06/14/23 13:44 Pulse Oximetry 94 06/14/23 13:44 Oxygen Delivery Me thod Room Air 06/14/23 13:44 MDM - General Adult Medical Decision Making 57-year-old female comes in today for evaluation of right rib pain. On exam there is no crepitus. Lungs are clear to auscultation. Abdomen soft nontender. Heart rates regular. No edema is noted in the extremities. Differential diagnosis includes but not limited to fracture, contusion, sprain. X-rays of the ribs and chest were normal. Reviewed exam with patient with recommendations for treatment and follow-up. Patient reported understanding. All radiology interpretation(s) finalized by discharge Discharge Plan Discharge Patient Disposition: Home Clinical Impression: Sprain of ribs, initial encounter Condition: Stable Prescriptions: No Action (DME) C-PAP supplies See Rx Instructions .Route .MEDSUPPLY Qty: 1 12RF Rx Instructions: As directed (DME) cpap supplies See Rx Instructions .Route .MEDSUPPLY Qty: 1 0RF Rx Instructions: needs water tub, tubing, resmed shallow face or floating face mask, rubber pieces, filters. (DME) poise pads See Rx Instructions .Route .MEDSUPPLY Qty: 100 0RF Rx Instructions: As directed acetaminophen [Tylenol] 325 mg tablet 325 mg PO QID PRN ibuprofen 200 mg tablet 200 mg PO Q6H PRN garlic Tablet 300 mg PO DAILY cholecalciferol (vitamin D3) 25 mcg (1,000 unit) capsule 25 mcg PO DAILY cinnamon bark [Cinnamon] 500 mg capsule 500 mg PO DAILY turmeric 400 mg capsule 400 mg PO DAILY vitamin K2 100 mcg capsule 100 mcg PO DAILY (DME) sleep apnea machine with supplies See Rx Instructions .Route .MEDSUPPLY Qty: 1 0RF Rx Instructions: As directed. pressure at 8.4. ramp time 0. 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 epr level 1. ab filter no. mupirocin 2 % ointment 1 applic topical TID Qty: 22 0RF amoxicillin-pot clavulanate 875-125 mg tablet 1 tab PO BID 10 Days Qty: 20 0RF (DME) OneTouch Ultra Test Strip See Rx Instructions .ROUTE .COMPLEX Qty: 150 3RF Dose Instruction: test DIRECTED THREE TIMES DAILY Rx Instructions: test DIRECTED THREE TIMES DAILY (DME) blood-glucose meter [Accu-Chek Guide Glucose Meter] Misc See Rx Instructions .Route Qty: 1 0RF Rx Instructions: As directed cetirizine [Zyrtec] 10 mg tablet 10 mg PO DAILY PRN (Reason: allergy symptoms) Qty: 30 5RF alprazolam 0.5 mg tablet 0.5 mg PO BID PRN (Reason: anxiety) 30 Days Qty: 60 4RF bupropion HCl [Wellbutrin SR] 150 mg tablet sustained-release 12 hr 150 mg PO BID 30 Days Qty: 60 4RF zolpidem [Ambien] 10 mg tablet 15 mg PO .Bedtime 90 Days Qty: 135 3RF Discharge Orders: Discharge ED (Routine); Ordered 06/14/23 Ordered By: Pardeep Vallejo Referrals: Zoila Brennan MD [Primary Care Provider] - Discharge Diet: Usual diet Discharge Activity: Increase activity as tolerated Patient Instructions: Rib Contusion (ED) Activity Restrictions/Additional Instructions: Drink plenty of water and fluids. Use acetaminophen and ibuprofen for pain. Use ice and heat for further pain relief. Follow-up with primary care for further instructions. Coding Level of Care Code ED Education Dean for Pete Bustos
== END 2023-06-14 15:14 | disposition home or self-care (01) ==
PROVIDERS: Emergency Provider Nurse Practitioner Family; PCP Family Medicine
DX: S23.41XA Sprain of ribs, initial encounter (principal); F17.210 Nicotine dependence, cigarettes, uncomplicated; E11.9 Type 2 diabetes mellitus without complications; E78.5 Hyperlipidemia, unspecified; I10 Essential (primary) hypertension; X50.1XXA Overexertion from prolonged static or awkward postures, initial encounter
CPT/HCPCS: 71101; 99283

== ENCOUNTER 2023-07-23 16:45 | Emergency (ER) | payer MEDICAID, SELFPAY ==
[2023-07-23] VITALS (11 sets, daily range): BP systolic 106–125; BP diastolic 62–80; PULSE 75–122; RESP 14–17; TEMP 37.1; O2SAT 93–97; BMI 36.0
[2023-07-23] MEDS: sodium chloride 0.9% 1,000 ML 999 ML IV (17:41)
[2023-07-23 17:46] LABS: Basophils % 0.3 %; Eosinophils % 0.3 %; Hematocrit 48.4 % (36-47); Lymphocytes # 0.5 10^3/uL (0.8-4.8); Lymphocytes % 3.3 %; Mean Corpuscular HGB Conc 33.9 g/dL (30-55); Mean Corpuscular Hemoglobin 30.4 pg (27-33); Mean Corpuscular Volume 89.8 fl (85-98); Mean Platelet Volume 9.6 fL (7.4-10.4); Monocytes # 0.4 10^3/uL (0.2-0.9); Monocytes % 2.5 %; Neutrophils # 13.31 10^3/uL (1.8-7.7); Neutrophils % 93.1 %; Nucleated Red Blood Cells % 0 %; Platelet Count 249 10^3/cmm (157-399); Red Blood Count 5.39 10^6/uL (3.85-5.65); Red Cell Distribution Width 13.1 % (12.1-15.1); White Blood Count 14.28 10^3/uL (3.29-11.43)
--- NOTE | 2023-07-23 17:53 | ED_ITS ---
Documented by User: Jacob Balbuena MD 07/23/23 18:03 HPI - Dizziness 2 General: Chief Complaint: Dizziness Stated Complaint: SYNCOPE Time Seen by Provider: 07/23/23 17:03 History of Present Illness: HPI Narrative: This patient is a 57-year-old white female who presents to the ER stating that she developed diarrhea this morning and then later developed nausea and vomiting. This afternoon when she was sitting on the toilet she became very diaphoretic and had a syncopal episode. She did not have any associated chest pain or shortness of breath. She has not noticed a fever. Patient does have a history of cardiomyopathy, [id number] diabetes, depression anxiety and asthma. Associated symptoms: Reports nausea, syncope and vomiting Review of Systems 2 General: Reports: 10 or more systems reviewed and unremarkable except in HPI and below Card: Reports: syncope GI: Reports: nausea, vomiting and diarrhea PFSH ED 2 PFSH: Medical History LBBB (left bundle branch block) Psychiatric care Women's annual routine gynecological examination Smoker Dyslipidemia History of hypertension Asthma Allergic rhinitis due to allergen Hiatal hernia Barretts esophagus CORINNA (obstructive sleep apnea) Goiter Diabetes type 2, uncontrolled Anxiety and depression Obesity (BMI 30-39.9) Problems related to lack of adequate sleep Surgical History History of placement of ear tubes Hx of oral surgery History of mandibular surgery Hx of cholecystectomy Hx of hysterectomy History of repair of rectocele Hx of bladder repair surgery Family History Mother Anesthesia complication Cancer Lung disease Father CAD (coronary artery disease) Afib Diabetes Lung disease Grandmother Dementia Family/Other Lung disease Denies family history of Clotting disorder Chronic kidney disease (CKD) Suicide Bleeding disorder Stroke Social History Smoking and tobacco/nicotine status: current every day tobacco/nicotine user cigarettes Packs smoked per day: 1 Years cigarettes smoked: 41 Alcohol intake: never Substance/Drug Use: unknown Adopted: No Household members: spouse and children Housing: House Marital status: Highest education level completed: Some College, No Degree service: No Current occupational status: employed 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 Eye: COMMON NORMALS: Equal, round and reactive pupils present, EOMs intact bilaterally and conjunctivae normal GENERAL EYE: appearance normal, both eyes and all related structures CONJUNCTIVA: Yes conjunctivae normal PUPIL: Yes Equal, round and reactive pupils present Neck/C-Spine: COMMON NORMALS: supple and no JVD Chest: COMMONS NORMALS: normal inspection of the chest Resp: COMMON NORMALS: normal respiratory effort and clear to auscultation bilaterally AUSCULTATION: clear to auscultation bilaterally Cardio: COMMON NORMALS: no JVD, regular rate, regular rhythm, No gallops present (Cardio), No murmurs present (Cardio) and No rub (Cardio) RATE: r egular rate RHYTHM: regular rhythm GI: COMMON NORMALS: Normal to inspection, nondistended, normoactive bowel sounds present, Soft to palpation and non-tender AUSCULTATION: Yes normoactive bowel sounds PALPATION: Yes Soft to palpation : COMMON NORMALS: Yes no CVA tenderness BLADDER/KIDNEY EXAM: Yes no CVA tenderness Back/Pelvis: COMMON NORMALS: no CVA tenderness and thoracic and lumbar spine normal to inspection Extremity: COMMON NORMALS: normal to inspection Neuro: COMMON NORMALS: patient oriented x3 and CN's II-XII intact bilaterally Psych: COMMON NORMALS: mental status grossly normal, Normal thought process present and cooperative THOUGHT PROCESS: Normal thought process present Skin: COMMON NORMALS: no rashes or lesions noted, turgor normal and no jaundice GENERAL SKIN EXAM: no rashes or lesions noted and turgor normal Course 2 Vital Signs: Vital signs: Vital Signs Temperature 98.7 F 07/23/23 19:25 Pulse Rate 75 07/23/23 19:25 Respiratory Rate 14 07/23/23 19:25 Blood Pressure 114/63 07/23/23 19:25 Pulse Oximetry 95 07/23/23 19:25 Oxygen Delivery Me thod Room Air 07/23/23 19:05 MDM - Dizziness Medical Decision Making Patient is currently getting IV fluid bolus. She declined Zofran. Her white count is 14.3. The rest of the labs are pending. Patient care transferred to Dr. Lind at shift change. Patient is stable. Lab Data 07/23/23 17:38 07/23/23 17:38 Laboratory Results WBC 14.28 10^3/uL (3.29-11.43) H 07/23/23 17:38 RBC 5.39 10^6/uL (3.85-5.65) 07/23/23 17:38 Hgb 16.40 g/dL (11.27-16.99) 07/23/23 17:38 Hct 48.4 % (36-47) H 07/23/23 17:38 MCV 89.8 fl (85-98) 07/23/23 17:38 MCH 30.4 pg (27-33) 07/23/23 17:38 MCHC 33.9 g/dL (30-55) 07/23/23 17:38 RDW 13.1 % (12.1-15.1) 07/23/23 17:38 Plt Count 249 10^3/cmm (157-399) 07/23/23 17:38 MPV 9.6 fL (7.4-10.4) 07/23/23 17:38 Neut % (Auto) 93.1 % 07/23/23 17:38 Lymph % (Auto) 3.3 % 07/23/23 17:38 [place] % (Auto) 2.5 % 07/23/23 17:38 Eos % (Auto) 0.3 % 07/23/23 17:38 Baso % (Auto) 0.3 % 07/23/23 17:38 Neut # (Auto) 13.31 10^3/uL (1.8-7.7) H 07/23/23 17:38 Lymph # (Auto) 0.5 10^3/uL (0.8-4.8) L 07/23/23 17:38 [place] # (Auto) 0.4 10^3/uL (0.2-0.9) 07/23/23 17:38 Eos # (Auto) 0.0 10^3/uL (0.0-0.8) 07/23/23 17:38 Baso # (Auto) 0.0 10^3/uL (0.0-0.1) 07/23/23 17:38 Nucleated RBC % (auto) 0 % 07/23/23 17:38 Nucleated RBCs # 0.0 /100WBC 07/23/23 17:38 Sodium 132 mmol/L (136-145) L 07/23/23 17:38 Potassium 4.4 mmol/L (3.5-5.1) 07/23/23 17:38 Chloride 97 mmol/L (98-107) L 07/23/23 17:38 Carbon Dioxide 20 mmol/L (22-29) L 07/23/23 17:38 Anion Gap 19.4 (5-19) H 07/23/23 17:38 BUN 16 mg/dL (6-20) 07/23/23 17:38 Creatinine 0.5 mg/dL (0.5-0.9) 07/23/23 17:38 GFR Calculation 127.6 mL/min (90-130) 07/23/23 17:38 Glucose 223 mg/dL (65-115) H 07/23/23 17:38 Calculated Osmolality 282 mOsm/kg (285-295) L 07/23/23 17:38 Calcium 8.6 mg/dL (8.5-10.5) 07/23/23 17:38 Total Bilirubin 0.4 mg/dL (0.15-1.2) 07/23/23 17:38 AST 10 U/L (0-32) 07/23/23 17:38 ALT 14 U/L (0-33) 07/23/23 17:38 Alkaline Phosphatase 106 U/L (35-105) H 07/23/23 17:38 Total Protein 7.2 g/dL (6.6-8.7) 07/23/23 17:38 Albumin 4.0 g/dL (3.5-5.2) 07/23/23 17:38 Globulin 3.2 g/dL (1.3-4.6) 07/23/23 17:38 No radiology studies performed this visit Discharge Plan Discharge Patient Disposition: Home Clinical Impression: Gastroenteritis, Syncope, Dehydration Condition: Stable Prescriptions: New ondansetron 4 mg tablet,disintegrating 4 mg PO Q6H PRN (Reason: nausea and vomiting) Qty: 14 0RF No Action (DME) C-PAP supplies See Rx Instructions .Route .MEDSUPPLY Qty: 1 12RF Rx Instructions: As directed (DME) cpap supplies See Rx Instructions .Route .MEDSUPPLY Qty: 1 0RF Rx Instructions: needs water tub, tubing, resmed shallow face or floating face mask, rubber pieces, filters. (DME) poise pads See Rx Instructions .Route .MEDSUPPLY Qty: 100 0RF Rx Instructions: As directed acetaminophen [Tylenol] 325 mg tablet 325 mg PO QID PRN ibuprofen 200 mg tablet 200 mg PO Q6H PRN garlic Tablet 300 mg PO DAILY cholecalciferol (vitamin D3) 25 mcg (1,000 unit) capsule 25 mcg PO DAILY cinnamon bark [Cinnamon] 500 mg capsule 500 mg PO DAILY turmeric 400 mg capsule 400 mg PO DAILY vitamin K2 100 mcg capsule 100 mcg PO DAILY (DME) sleep apnea machine with supplies See Rx Instructions .Route .MEDSUPPLY Qty: 1 0RF Rx Instructions: As directed. pressure at 8.4. ramp time 0. 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 epr level 1. ab filter no. mupirocin 2 % ointment 1 applic topical TID Qty: 22 0RF amoxicillin-pot clavulanate 875-125 mg tablet 1 tab PO BID 10 Days Qty: 20 0RF (DME) OneTouch Ultra Test Strip See Rx Instructions .ROUTE .COMPLEX Qty: 150 3RF Dose Instruction: test DIRECTED THREE TIMES DAILY Rx Instructions: test DIRECTED THREE TIMES DAILY (DME) blood-glucose meter [Accu-Chek Guide Glucose Meter] [facility] See Rx Instructions .Route Qty: 1 0RF Rx Instructions: As directed cetirizine [Zyrtec] 10 mg tablet 10 mg PO DAILY PRN (Reason: allergy symptoms) Qty: 30 5RF alprazolam 0.5 mg tablet 0.5 mg PO BID PRN (Reason: anxiety) 30 Days Qty: 60 4RF bupropion HCl [Wellbutrin SR] 150 mg tablet sustained-release 12 hr 150 mg PO BID 30 Days Qty: 60 4RF zolpidem [Ambien] 10 mg tablet 15 mg PO .Bedtime 90 Days Qty: 135 3RF Discharge Orders: Discharge ED (Routine); Ordered 07/23/23 Ordered By: Earl Lind Referrals: Zoial Brennan MD [Primary Care Provider] - 1-3 days Patient Instructions: Dehydration (ED), Syncope (ED), Gastroenteritis (ED), Opioid Safety, Pain Management Activity Restrictions/Additional Instructions: Clear liquid diet for the next 24 to 48 hours. Then advance as tolerated. Return for worsening vomiting or diarrhea, vomiting liquids, repeated episodes of syncope or passing out, other concerning symptoms. See your doctor this week. Coding Level of Care Code ED Warp Scouring Vat Tender for Chg Fwd Documented by User: Earl Lind DO 07/23/23 20:01 HPI - Dizziness 2 General: Chief Complaint: Dizziness Stated Complaint: SYNCOPE Time Seen by Provider: 07/23/23 17:03 PFSH ED 2 PFSH: Medical History LBBB (left bundle branch block) Psychiatric care Women's annual routine gynecological examination Smoker Dyslipidemia History of hypertension Asthma Allergic rhinitis due to allergen Hiatal hernia Barretts esophagus CORINNA (obstructive sleep apnea) Goiter Diabetes type 2, uncontrolled Anxiety and depression Obesity (BMI 30-39.9) Problems related to lack of adequate sleep Surgical History History of placement of ear tubes Hx of oral surgery History of mandibular surgery Hx of cholecystectomy Hx of hysterectomy History of repair of rectocele Hx of bladder repair surgery Family History Mother Anesthesia complication Cancer Lung disease Father CAD (coronary artery disease) Afib Diabetes Lung disease Grandmother Dementia Family/Other Lung disease Denies family history of Clotting disorder Chronic kidney disease (CKD) Suicide Bleeding disorder Stroke Social History Smoking and tobacco/nicotine status: current every day tobacco/nicotine user cigarettes Packs smoked per day: 1 Years cigarettes smoked: 41 Alcohol intake: never Substance/Drug Use: unknown Adopted: No Household members: spouse and children Housing: House Marital status: Highest education level completed: Some College, No Degree service: No Current occupational status: employed 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 She declined Zofran. Her white count is 14.3. The rest of the labs are pending. Patient care transferred to Dr. Lind at shift change. Patient is stable. Patient is not orthostatic, although heart rate did increase on rising even after fluid. She feels much improved. She has walked in the ER without complaint. She will be treated symptomatically. To return for worsening symptoms despite treatment. Lab Data 07/23/23 17:38 07/23/23 17:38 Laboratory Results WBC 14.28 10^3/uL (3.29-11.43) H 07/23/23 17:38 RBC 5.39 10^6/uL (3.85-5.65) 07/23/23 17:38 Hgb 16.40 g/dL (11.27-16.99) 07/23/23 17:38 Hct 48.4 % (36-47) H 07/23/23 17:38 MCV 89.8 fl (85-98) 07/23/23 17:38 MCH 30.4 pg (27-33) 07/23/23 17:38 MCHC 33.9 g/dL (30-55) 07/23/23 17:38 RDW 13.1 % (12.1-15.1) 07/23/23 17:38 Plt Count 249 10^3/cmm (157-399) 07/23/23 17:38 MPV 9.6 fL (7.4-10.4) 07/23/23 17:38 Neut % (Auto) 93.1 % 07/23/23 17:38 Lymph % (Auto) 3.3 % 07/23/23 17:38 [place] % (Auto) 2.5 % 07/23/23 17:38 Eos % (Auto) 0.3 % 07/23/23 17:38 Baso % (Auto) 0.3 % 07/23/23 17:38 Neut # (Auto) 13.31 10^3/uL (1.8-7.7) H 07/23/23 17:38 Lymph # (Auto) 0.5 10^3/uL (0.8-4.8) L 07/23/23 17:38 [place] # (Auto) 0.4 10^3/uL (0.2-0.9) 07/23/23 17:38 Eos # (Auto) 0.0 10^3/uL (0.0-0.8) 07/23/23 17:38 Baso # (Auto) 0.0 10^3/uL (0.0-0.1) 07/23/23 17:38 Nucleated RBC % (auto) 0 % 07/23/23 17:38 Nucleated RBCs # 0.0 /100WBC 07/23/23 17:38 Sodium 132 mmol/L (136-145) L 07/23/23 17:38 Potassium 4.4 mmol/L (3.5-5.1) 07/23/23 17:38 Chloride 97 mmol/L (98-107) L 07/23/23 17:38 Carbon Dioxide 20 mmol/L (22-29) L 07/23/23 17:38 Anion Gap 19.4 (5-19) H 07/23/23 17:38 BUN 16 mg/dL (6-20) 07/23/23 17:38 Creatinine 0.5 mg/dL (0.5-0.9) 07/23/23 17:38 GFR Calculation 127.6 mL/min (90-130) 07/23/23 17:38 Glucose 223 mg/dL (65-115) H 07/23/23 17:38 Calculated Osmolality 282 mOsm/kg (285-295) L 07/23/23 17:38 Calcium 8.6 mg/dL (8.5-10.5) 07/23/23 17:38 Total Bilirubin 0.4 mg/dL (0.15-1.2) 07/23/23 17:38 AST 10 U/L (0-32) 07/23/23 17:38 ALT 14 U/L (0-33) 07/23/23 17:38 Alkaline Phosphatase 106 U/L (35-105) H 07/23/23 17:38 Total Protein 7.2 g/dL (6.6-8.7) 07/23/23 17:38 Albumin 4.0 g/dL (3.5-5.2) 07/23/23 17:38 Globulin 3.2 g/dL (1.3-4.6) 07/23/23 17:38 Discharge Plan Discharge Patient Disposition: Home Clinical Impression: Gastroenteritis, Syncope, Dehydration Condition: Stable Prescriptions: New ondansetron 4 mg tablet,disintegrating 4 mg PO Q6H PRN (Reason: nausea and vomiting) Qty: 14 0RF No Action (DME) C-PAP supplies See Rx Instructions .Route .MEDSUPPLY Qty: 1 12RF Rx Instructions: As directed (DME) cpap supplies See Rx Instructions .Route .MEDSUPPLY Qty: 1 0RF Rx Instructions: needs water tub, tubing, resmed shallow face or floating face mask, rubber pieces, filters. (DME) poise pads See Rx Instructions .Route .MEDSUPPLY Qty: 100 0RF Rx Instructions: As directed acetaminophen [Tylenol] 325 mg tablet 325 mg PO QID PRN ibuprofen 200 mg tablet 200 mg PO Q6H PRN garlic Tablet 300 mg PO DAILY cholecalciferol (vitamin D3) 25 mcg (1,000 unit) capsule 25 mcg PO DAILY cinnamon bark [Cinnamon] 500 mg capsule 500 mg PO DAILY turmeric 400 mg capsule 400 mg PO DAILY vitamin K2 100 mcg capsule 100 mcg PO DAILY (DME) sleep apnea machine with supplies See Rx Instructions .Route .MEDSUPPLY Qty: 1 0RF Rx Instructions: As directed. pressure at 8.4. ramp time 0. 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 epr level 1. ab filter no. mupirocin 2 % ointment 1 applic topical TID Qty: 22 0RF amoxicillin-pot clavulanate 875-125 mg tablet 1 tab PO BID 10 Days Qty: 20 0RF (DME) OneTouch Ultra Test Strip See Rx Instructions .ROUTE .COMPLEX Qty: 150 3RF Dose Instruction: test DIRECTED THREE TIMES DAILY Rx Instructions: test DIRECTED THREE TIMES DAILY (DME) blood-glucose meter [Accu-Chek Guide Glucose Meter] Misc See Rx Instructions .Route Qty: 1 0RF Rx Instructions: As directed cetirizine [Zyrtec] 10 mg tablet 10 mg PO DAILY PRN (Reason: allergy symptoms) Qty: 30 5RF alprazolam 0.5 mg tablet 0.5 mg PO BID PRN (Reason: anxiety) 30 Days Qty: 60 4RF bupropion HCl [Wellbutrin SR] 150 mg tablet sustained-release 12 hr 150 mg PO BID 30 Days Qty: 60 4RF zolpidem [Ambien] 10 mg tablet 15 mg PO .Bedtime 90 Days Qty: 135 3RF Discharge Orders: Discharge ED (Routine); Ordered 07/23/23 Ordered By: Earl Lind Referrals: Zoila Brennan MD [Primary Care Provider] - 1-3 days Patient Instructions: Dehydration (ED), Syncope (ED), Gastroenteritis (ED), Opioid Safety, Pain Management Activity Restrictions/Additional Instructions: Clear liquid diet for the next 24 to 48 hours. Then advance as tolerated. Return for worsening vomiting or diarrhea, vomiting liquids, repeated episodes of syncope or passing out, other concerning symptoms. See your doctor this week. Coding Level of Care Code ED Warp Scouring Vat Tender for Pete Bustos
[2023-07-23 18:05] LABS: Alanine Aminotransferase 14 U/L (0-33); Alkaline Phosphatase 106 U/L (35-105); Anion Gap 19.4 (5-19); Aspartate Amino Transferase 10 U/L (0-32); Blood Urea Nitrogen 16 mg/dL (6-20); Calcium 8.6 mg/dL (8.5-10.5); Carbon Dioxide 20 mmol/L (22-29); Chloride 97 mmol/L (98-107); Globulin 3.2 g/dL (1.3-4.6); Glomerular Filtration Rate 127.6 mL/min (90-130); Glucose 223 mg/dL (65-115); Osmolality Calculated 282 mOsm/kg (285-295); Potassium 4.4 mmol/L (3.5-5.1); Sodium 132 mmol/L (136-145); Total Bilirubin 0.4 mg/dL (0.15-1.2); Total Protein 7.2 g/dL (6.6-8.7)
== END 2023-07-23 19:26 | disposition home or self-care (01) ==
PROVIDERS: Emergency Medicine; Emergency Provider Emergency Medicine; PCP Family Medicine
DX: R55 Syncope and collapse (principal); K52.9 Noninfective gastroenteritis and colitis, unspecified; E86.0 Dehydration; E78.5 Hyperlipidemia, unspecified; I10 Essential (primary) hypertension; E11.9 Type 2 diabetes mellitus without complications
CPT/HCPCS: 80053; 85025; 99284; J7030

== ENCOUNTER → 2023-12-12 11:29 | Outpatient (BNVA) | payer MEDICAID, SELFPAY | PROVIDERS: PCP Family Medicine; Visit Provider Nurse Practitioner Family | DX: F41.9 Anxiety disorder, unspecified (principal); F32.9 Major depressive disorder, single episode, unspecified; E78.5 Hyperlipidemia, unspecified; E11.65 Type 2 diabetes mellitus with hyperglycemia; Z86.79 Personal history of other diseases of the circulatory system; J32.4 Chronic pansinusitis; J01.90 Acute sinusitis, unspecified; H66.93 Otitis media, unspecified, bilateral; H65.03 Acute serous otitis media, bilateral; J01.40 Acute pansinusitis, unspecified | CPT/HCPCS: 80053; 80061; 83036; 83721; 85025 ==

== ENCOUNTER → 2024-04-23 09:38 | Outpatient (BNVA) | payer MEDICAID, SELFPAY | PROVIDERS: PCP Nurse Practitioner Family; Visit Provider Nurse Practitioner Family | DX: E11.65 Type 2 diabetes mellitus with hyperglycemia (principal); E04.9 Nontoxic goiter, unspecified; E78.5 Hyperlipidemia, unspecified | CPT/HCPCS: 80053; 80061; 83036; 83721; 84439; 84443; 84481; 85025; 86376 ==

== ENCOUNTER 2024-07-03 15:15 | Outpatient (CLI) | payer MEDICAID, SELFPAY ==
--- NOTE | 2024-07-03 15:00 | MM_ITS ---
WS: [id number] BILATERAL 3D TOMOSYNTHESIS DIGITAL SCREENING MAMMOGRAPHY WITH CAD CLINICAL INFORMATION: Z12.39 - Encounter for other screening for malignant neop... HISTORY: Screening mammogram. No current complaints. COMPARISON: 2021 TECHNIQUE: Bilateral CC and MLO views. FINDINGS: Scattered fibroglandular densities bilaterally. No suspicious focal mass, asymmetry, calcifications, or architectural distortion. No evidence of malignancy. A few incidental punctate calcifications RIGH T breast. MM/MM [facility] tomosynthesis [id number] IMPRESSION: DENSITY: There are scattered areas of fibroglandular density. BI-RADS: 2 - Benign. FOLLOW UP: 1 Year Follow-up Recommend return to annual screening mammography.
== END 2024-07-03 15:16 | disposition home or self-care (01) ==
LOC: MOBLMAM 15:26
PROVIDERS: PCP Nurse Practitioner Family; Visit Provider Nurse Practitioner Family
DX: Z12.31 Encounter for screening mammogram for malignant neoplasm of breast (principal); R92.323 Mammographic fibroglandular density, bilateral breasts; R92.1 Mammographic calcification found on diagnostic imaging of breast
CPT/HCPCS: 77063; 77067

== ENCOUNTER → 2024-08-28 15:28 | Outpatient (BNVA) | payer MEDICAID, SELFPAY | PROVIDERS: PCP Nurse Practitioner Family | DX: M77.32 Calcaneal spur, left foot (principal) | CPT/HCPCS: 73630 ==

== ENCOUNTER 2024-12-30 18:07 | Emergency (ER) | payer MEDICAID, SELFPAY ==
--- OUTSIDE RECORDS SUMMARY | 2012-01-20 06:15 | XMS_ITS | Continuity of Care Document ---
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 Name Role Phone Stephanie Woods MD Unavailable Unavailable Allergies, Adverse Reactions, Alerts Substance Reaction Status Criticality latex Active No Information diazepam Active No Information codeine Active No Information IODINE Active No Information Medications Medication Instructions Dosage Effective Dates (start - stop) Status Comments artificial tear (hypromellose) (PF) 0.3 % Eye Drops 1 gtt bid-qid ou - Active WELLBUTRIN SR (unknown strength) Not Available - Active PROGESTERONE (unknown strength) Not Available - Active AMBIEN (unknown strength) Not Available - Active MULTIVITAMINS (unknown strength) Not Available - Active ALBUTEROL SULFATE (unknown strength) Not Available - Active SYMBICORT (unknown strength) Not Available - Active SINGULAIR (unknown strength) Not Available - Active BENADRYL (unknown strength) Not Available - Active COREG (unknown strength) Not Available - Active FLOVENT HFA (unknown strength) Not Available - Active MAGNESIUM (unknown strength) Not Available - Active OMEGA-3 FISH OIL (unknown strength) Not Available - Active VITAMIN E (unknown strength) Not Available - Active PREVACID (unknown strength) Not Available - Active BIAXIN (unknown strength) Not Available - Active PRILOSEC (unknown strength) Not Available - Active MECLIZINE HCL (unknown strength) Not Available - Active ALBUTEROL SULFATE (unknown strength) Not Available - Active FLONASE (unknown strength) Not Available - Active prednisolone acetate 1 % Eye Drops, Susp 1 gtt tid OD until comft then taper - No Longer Active Procedures Procedure Date EYE EXAM ESTABLISHED PAT, MEDICAL EYE EXAM, NEW PATIENT MEDICAL 2 Advance Directives Directive Yes / No Effective Date File Name No Information Encounters Encounter Description Practice Location Reason(s) For Visit Diagnoses Date Provider Providers Copied on Encounter [facility], [address] [place] [address], [id number] , tel: [phone] [facility] Tear film insufficiency, unspecifiedConjuncti vitis, unspecifiedConjuncti vitis, unspecifiedTear film insufficiency, unspecified 2 Peggy Brown. [address] [place] [address], [address] [place] [address], [id number] , [place]. tel: [phone] Referring Provider: Stephanie Padgett, [address] [place] [address] [facility], [place], [address] . tel:[phone] [facility], [address] [place] [address], [id number] , tel:[phone] [facility] Other chronic allergic conjunctivitisOther chronic allergic conjunctivitis 2 Peggy Brown. [address] [place] [address], [address] [place] [address], [id number] , [place]. tel: [phone] Referring Provider: Stephanie Padgett, [address] [place] [address] [address], [place], [address] . tel:[phone] Family History Family Member Type Diagnosis Age At Onset parents Problem (finding) HBP Problem (finding) No Family history of Ca taracts Problem (finding) No Family history of Re tinal Disorders Problem (finding) No Family history of Ar thritis Problem (finding) No Family history of St rabismus Problem (finding) No Family history of He art Disease Problem (finding) No Family history of St roke Problem (finding) Family history of asthm a Problem (finding) No Family history of Gl aucoma Problem (finding) No Family hist ory of Macular Degeneration Problem (finding) No Family history of Re spiratory Disease Problem (finding) No Family history of Di abetes mellitus Payers Payer name Insurance type Covered alliance party ID Authoriza tion(s) [facility] [id number] Social History Type Description Quantity Date Captured Comments Alcohol Use Details Unknown Caffeine Use Details Unknown Tobacco Use Status No Information Smoking Status Current every day smoker Smoking Tobacco Use Details Cigarette: No Details Available Cigarette: No Details Available Sex Female Chief Complaint And Reason For Visit No Information Reason For Referral Reason For Referral No Information History Of Present Illness Encounter Date Complaint History Of Prese nt Illness No Information Functional Status Date Functional Assessmen t No Information Instructions Date Instruction Additional Infor joanie - 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 Related to Tear film insufficiency, unspecified Conjunctivitis, unsp ecified Bilateral. Condition: resolved. Tear film insufficiency, unspecified OU. Condition: stable. Symptoms: will treat with meds. - OU doing much better but still dry. Would recommend tears bid-qid. retina's look normal, no glaucoma, no cat, no armd. Related to Tear film insufficiency, unspecified - 2 week sle Related to Other chronic allergic conjunctivitis Other chronic allerg ic conjunctivitis OD. Condition: uncontrolled. Symptoms: will treat with meds. - Discussed that symptoms are probably allergy related or that she is sensitive to gentamycin. Patient to Dc and start prednisolone 1% tid until comfortable then taper bid for 2 days then qd for 2 days then dc. Instructed patient that suddenly stopping a steroid will creat inflammation to come back. Related to Other chronic allergic conjunctivitis Assessments Type Assessment Date No Information Patient Care Teams Name Effective Dates (start - stop) Status Members No Information
--- OUTSIDE RECORDS SUMMARY | 2023-12-07 09:00 | XMS_ITS | Continuity of Care Document ---
Author Organization [facility] Address [id number] [address] Phone Care Team Providers Care Recreation Programmer Name Role Phone Sang GIACOMO Argelia Aviles Unavailable Unavaila ble Allergies, Adverse Reactions, Alerts Substance Reaction Status Criticality BANDAGES, COHESIVE Active No Inform ation nickel Active No Information silver sulfadiazine Active No Infor mation diazepam Active No Information latex Active No Information povidone-iodine Active No Informati on codeine Active No Information IODINE Active No Information Medications Medication Instructions Dosage Effective Dates (start - stop) Status Comments amoxicillin 500 mg capsule take 1 capsule by oral route every 8 hours 500 MG - Active Wellbutrin SR 150 mg tablet, 12 hr sustained-release take 1 tablet by oral route 2 times every day 150 MG - Active Ambien 10 mg tablet take 1 tablet by ora l route every day at bedtime 10 MG - Active Xanax 0.5 mg tablet take 1 tablet by ora l route 3 times every day 0.5 MG - Active albuterol sulfate 1.25 mg/3 mL solution for nebulization inhale 3 milliliter by inhalation route 3- 4 times every day via nebulizer 1.25 MG - Active Procedures Procedure Date No Work Today/No Charge Post Op No Charge Comprehensive Oral Evaluatio n New Or Established Caries High Risk Exempt From Sealant Measure Bitewings Four Films Intraoral Periapical First Film Intraoral Periapical Each Additional Film Intraoral Periapical Each Additional Film Intraoral Periapical Each Additional Film Limited Oral Evaluation Problem Focused Extraction, Erupted Tooth Or Exposed Dary t (Elevati Resin-Based Composite Four Or More Surfaces, Pos Resin-Based Composite Four Or More Surfaces, Pos Oral Hygiene Instructions Nutritional Counseling For Control Of De ntal Disea Caries Moderate Risk Exempt From Sealant Measure Resin-Based Composite Four Or More Surfaces Or I Resin-Based Composite Four Or More Surfaces Or I Resin-Based Composite Three Surfaces, Posterior Bitewings Four Films Panoramic Film Intraoral Periapical First Film Intraoral Periapical Each Additional Film Intraoral Periapical Each Additional Film Intraoral Periapical Each Additional Film Comprehensive Oral Evaluatio n New Or Established Advance Directives Directive Yes / No Effective Date File Name No Information Encounters Encounter Description Practice Location Reason(s) For Visit Diagnoses Date Provider Providers Copied on Encounter [facility], [id number] [place], [place], [id number], [place] tel:[phone] [facility] Encounter for dental exam and cleaning w/o abnormal findings Sang Aviles. [address] [place], [id number] , [place]. tel:[phone] Referring Provider: Argelia Domínguez, [address] [place], [address] . tel:[phone] [facility], [id number] [place], [id number], [place] tel:[phone] [facility] Encounter for dental exam and cleaning w/o abnormal findings Danish Barragan. [address] [place] [address], [address], [place]. tel: [phone] Referring Provider: Yung Peng, [address] [place] [address], [address]. tel:[phone] [facility], [id number]Qv [place], [address], [place] tel:[phone] [facility] No Information Ray Holt. [address], [place], [address] , [place]. tel: [phone] Referring Provider: Jonathon Bell, [address] [place], [address] . tel:[phone] [facility], [id number], [address], [place] tel:[phone] [facility] No Information Sang Aviles. [address] [place], [place], [address] , [place]. tel: [phone] Referring Provider: Argelia Domínguez, [address] [place], [address] . tel:[phone] [facility], [id number], [address], [place] tel:[phone] [facility] No Information Sang Aviles. [address] [place], [place], [address] , [place]. tel:[phone] Referring Provider: Argelia Domínguez, [address] [place], [address] . tel:[phone] [facility], [id number] [place], [address], [place] tel:[phone] [facility] Encounter for dental exam and cleaning w/o abnormal findings Latasha Shaffer. [address] [place], [place], [address] , [place]. tel:[phone] Referring Provider: Edmund Pagan, [address] [place], [address] . tel:[phone] [facility], [id number] [id number], [address], [place] tel:[phone] [facility] No Information Latasha Shaffer. [address] [facility] [place], [address] , [place]. tel:[phone] Referring Provider: Edmund Pagan, [address] [place], [address] . tel:[phone] [facility], [id number] [place]2390[place], [address], [place] tel:[phone] [facility] No Information Latasha Shaffer. [address] [facility] [place], [address] , [place]. [phone] Referring Provider: Edmund Pagan, [address] [place], [address] . tel:[phone] Family History Family Member Type Diagnosis Age At Onset No Information Payers Payer name Insurance type Covered green party ID Evelio georges(s) [facility] Medicaid [id number] Social History Type Description Quantity Date Captured Comments Alcohol Use Details No Caffeine Use Details Unknown Tobacco Use Status Smoking Status No Information Sex Female Sexual Orientation Heterosexual Gender Identity Female Chief Complaint And Reason For Visit No Information Reason For Referral Reason For Referral No Information Plan Of Treatment Date Type Action Status Goal Tobacco cessation counseling completed Goal Tobacco cessation counseling completed Goal Tobacco cessation counseling completed Goal Tobacco cessation counseling completed History Of Present Illness Encounter Date Complaint History Of Prese nt Illness No Information Functional Status Date Functional Assessmen t No Information Instructions Date Instruction Additional Infor joanie Lifestyle education Related to D ental Examination Lifestyle education Related to D ental Examination Lifestyle education Related to D ental Examination Lifestyle education Related to D ental Examination Assessments Type Assessment Date No Information Patient Care Teams Name Effective Dates (start - stop) Status Members No Information
--- NOTE | 2024-12-30 18:08 | ECG_ITS ---
[facility] Date: 2024-12-30 Pat Name: Antonio Lantigua Department: Room: Gender: Female Health Data Administrator: : 1965 Requested By: Supa Castaneda Order Number: [id number] Quinteros MD: Jesus Braga M.D. Measurements Intervals [place] Rate: 102 P: 57 WI: 136 QRS: -14 QRSD: 139 T: 127 QT: 380 QTc: 495 Interpretive Statements SINUS TACHYCARDIA LEFT BUNDLE BRANCH BLOCK [120+ ms QRS DURATION, 80+ ms Q/S IN V1/V2, 85+ ms R IN I/aVL/V5/V6] No previous ECG available for comparison Electronically Signed On 01-02-2025 09:06:00 CDT by Jesus Braga M.D. [id number]
[2024-12-30 18:12] VITALS: BP 117/81; PULSE 98; RESP 16; TEMP 36.7; O2SAT 96; BMI 36.9
[2024-12-30 20:57] LABS: Hematocrit 52.3 % (36-47); Hemoglobin 18.00 g/dL (11.27-16.99); Mean Corpuscular HGB Conc 34.4 g/dL (30-55); Mean Corpuscular Hemoglobin 30.5 pg (27-33); Mean Corpuscular Volume 88.5 fl (85-98); Nucleated Red Blood Cells % 0 %; Platelet Count 298 10^3/cmm (157-399); Red Blood Count 5.91 10^6/uL (3.85-5.65); White Blood Count 12.77 10^3/uL (3.29-11.43)
--- NOTE | 2024-12-30 21:10 | W.ED.SYNCOPE ---
HPI - Syncope General: Chief Complaint: Syncope Stated Complaint: Near Syncope Time Seen by Provider: 12/30/24 20:12 Source: patient Mode of arrival: ambulatory Limitations: no limitations History of Present Illness: 59-year-old female states that around 2 this afternoon she was having a bowel movement states she had a sharp pain in her abdomen during the bowel movement and felt like she was in a pass out states she had to lay on the floor states that abdominal pain is went away she still has some slight lightheadedness she denies any chest pain denies any headache she has had no vomiting or diarrhea. Associated symptoms: Reports abdominal pain and nausea; Deny chest pain, fever(s) or headache(s) Related Data Home Medications ?Medication ?Instructions ?Recorded ?Confirmed acetaminophen 325 mg tablet 325 mg PO QID PRN 01/11/22 10/28/24 (Tylenol) cholecalciferol (vitamin D3) 25 25 mcg PO DAILY 01/11/22 10/28/24 mcg (1,000 unit) capsule cinnamon bark 500 mg capsule 500 mg PO DAILY 01/11/22 10/28/24 (Cinnamon) garlic 300 mg PO DAILY 01/11/22 10/28/24 ibuprofen 200 mg tablet 200 mg PO Q6H PRN 01/11/22 10/28/24 turmeric 400 mg capsule 400 mg PO DAILY 01/11/22 10/28/24 vitamin K2 100 mcg capsule 100 mcg PO DAILY 01/11/22 10/28/24 Previous Rx's ?Medication ?Instructions ?Recorded C-PAP supplies #1 ea 02/08/21 cpap supplies #1 ea 07/07/21 poise pads #100 ea 07/07/21 sleep apnea machine with supplies #1 ea 03/23/22 blood sugar diagnostic (OneTouch #150 strips 03/29/23 Ultra Test strips) blood-glucose meter (Accu-Chek #1 ea 03/29/23 Guide Glucose Meter) ondansetron 4 mg disintegrating 4 mg PO Q6H PRN nausea and 07/23/23 tablet vomiting #14 tabs alprazolam 0.5 mg tablet 0.5 mg PO BID PRN anxiety 30 days 12/30/23 #60 tabs mupirocin 2 % topical ointment 1 applic topical TID #22 grams 02/22/24 triamcinolone acetonide 0.1 % 1 applic topical BID bug bites #30 03/23/24 topical cream grams zolpidem 10 mg tablet (Ambien) 15 mg (1.5 x 10 mg) PO .Bedtime 30 10/11/24 days #45 tabs mupirocin 2 % topical ointment 1 applic topical TID #15 grams 10/28/24 (Centany) prednisone 10 mg tablets in a dose See Rx Instructions PO PER PKG DIR 10/28/24 pack #21 ea sulfamethoxazole 800 1 tab PO BID #20 tabs 10/28/24 mg-trimethoprim 160 mg tablet (Bactrim DS) cetirizine 10 mg tablet See Rx Instructions .Route 11/21/24 .COMPLEX #30 tabs bupropion HCl 150 mg tablet,12 hr 150 mg PO BID 30 days #60 tabs 12/30/24 sustained-release (Wellbutrin SR) Allergies Allergy/AdvReac Type Severity Reaction Status Date / Time copper Allergy Severe velez skin Verified 10/28/24 11:21 povidone-iodine (From Allergy Severe rash Verified 10/28/24 11:21 Betadine) diphenhydramine (From Allergy Intermediate Speed Verified 10/28/24 11:21 Benadryl) diazepam (From Valium) Allergy shake Verified 10/28/24 11:21 latex Allergy velez skin Verified 10/28/24 11:21 nickel Allergy removes Verified 10/28/24 11:21 skin with the jewelry codeine AdvReac stomach Verified 10/28/24 11:21 issues iodine AdvReac vomit Verified 10/28/24 11:21 Review of Systems Const: Denies: fever(s), chills, body aches or change in appetite ENMT: Denies: throat pain or dental pain Card: Reports: pre-syncope; Denies: chest pain Resp: Denies: dyspnea GI: Reports: abdominal pain and nausea; Denies: vomiting or diarrhea Musc: Denies: neck pain or back pain Skin/Breast: Denies: rash Neuro: Denies: headache(s) PFSH ED PFSH: Medical History LBBB (left bundle branch block) Psychiatric care Women's annual routine gynecological examination Smoker Dyslipidemia History of hypertension Asthma Allergic rhinitis due to allergen Hiatal hernia Barretts esophagus COIRNNA (obstructive sleep apnea) Goiter Diabetes type 2, uncontrolled Anxiety and depression Obesity (BMI 30-39.9) Problems related to lack of adequate sleep Surgical History History of placement of ear tubes Hx of oral surgery History of mandibular surgery Hx of cholecystectomy Hx of hysterectomy History of repair of rectocele Hx of bladder repair surgery Family History Mother Anesthesia complication Cancer Lung disease Father CAD (coronary artery disease) Afib Diabetes Lung disease Grandmother Dementia Family/Other Lung disease Denies family history of Clotting disorder Chronic kidney disease (CKD) Suicide Bleeding disorder Stroke Social History Smoking and tobacco/nicotine status: current every day tobacco/nicotine user cigarettes Packs smoked per day: 1 Years cigarettes smoked: 41 Alcohol intake: never Substance/Drug Use: unknown Adopted: No Household members: spouse and children Housing: House Marital status: Highest education level completed: Some College, No Degree service: No Current occupational status: employed 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 Pets and animals: No Current gender identity: Female Physical Exam Const: COMMON NORMALS: no acute distress, patient oriented x3 and healthy appearing HENMT: COMMON NORMALS: normocephalic and atraumatic HEAD & SCALP: normocephalic and atraumatic Eye: COMMON NORMALS: conjunctivae normal CONJUNCTIVA: Yes conjunctivae normal Neck/C-Spine: COMMON NORMALS: full ROM and supple Chest: COMMONS NORMALS: normal inspection of the chest Resp: COMMON NORMALS: normal respiratory effort, No retractions, No use of accessory muscles and clear to auscultation bilaterally AUSCULTATION: clear to auscultation bilaterally Cardio: COMMON NORMALS: regular rate, regular rhythm and No murmurs present (Cardio) RATE: regular rate RHYTHM: regular rhythm GI: COMMON NORMALS: Normal to inspection, nondistended, normoactive bowel sounds present, Soft to palpation, non-tender and no masses PALPATION: Yes Soft to palpation Extremity: COMMON NORMALS: normal to inspection and full ROM Neuro: COMMON NORMALS: patient oriented x3, moves all extremities and no focal motor deficits Psych: COMMON NORMALS: mental status grossly normal, Normal thought process present and cooperative THOUGHT PROCESS: Normal thought process present Skin: COMMON NORMALS: no rashes or lesions noted and no wounds GENERAL SKIN EXAM: no rashes or lesions noted Course Vital Signs: Vital signs: Vital Signs Temperature 98.1 F 12/30/24 18:12 Pulse Rate 98 12/30/24 18:12 Respiratory Rate 16 12/30/24 18:12 Blood Pressure 132/99 12/30/24 22:15 Pulse Oximetry 95 12/30/24 22:15 Oxygen Delivery Me thod Room Air 12/30/24 18:12 MDM - Syncope Medical Decision Making Patient presents with a syncopal event is likely a vagal episode when she is straining to have a bowel movement she has been well-appearing here vitals are normal EKG blood work normal she stable for discharge follow-up with PCP return if worsening Medical Records I reviewed the patient's medical records. Lab Data I reviewed the patient's lab results. 12/30/24 20:29 12/30/24 20: Laboratory Results WBC 12.77 10^3/uL (3.29-11.43) H 12/30/24 20: RBC 5.91 10^6/uL (3.85-5.65) H 12/30/24 20: Hgb 18.00 g/dL (11.27-16.99) H 12/30/24 20: Hct 52.3 % (36-47) H 12/30/24 20: MCV 88.5 fl (85-98) 12/30/24 20: MCH 30.5 pg (27-33) 12/30/24 20: MCHC 34.4 g/dL (30-55) 12/30/24 20: RDW 13.2 % (12.1-15.1) 12/30/24 20: Plt Count 298 10^3/cmm (157-399) 12/30/24 20: MPV 10.0 fL (7.4-10.4) 12/30/24 20: Neut % (Auto) 70.8 % 12/30/24 20: Lymph % (Auto) 23.0 % 12/30/24 20: [place] % (Auto) 4.5 % 12/30/24 20: Eos % (Auto) 0.6 % 12/30/24 20: Baso % (Auto) 0.6 % 12/30/24: Neut # (Auto) 9.03 10^3/uL (1.8-7.7) H 12/30/24: Lymph # (Auto) 2.9 10^3/uL (0.8-4.8) 12/30/24: [place] # (Auto) 0.6 10^3/uL (0.2-0.9) 12/30/24: Eos # (Auto) 0.1 10^3/uL (0.0-0.8) 12/30/24: Baso # (Auto) 0.1 10^3/uL (0.0-0.1) 12/30/24 Nucleated RBC % (auto) 0 % 12/30/24 Nucleated RBCs # 0.0 /100WBC 12/30/24: Sodium 135 mmol/L (136-145) L 12/30/24: Potassium 4.5 mmol/L (3.5-5.1) 12/30/24: Chloride 97 mmol/L (98-107) L 12/30/24: Carbon Dioxide 22 mmol/L (22-29) 12/30/24: Anion Gap 20.5 (5-19) H 12/30/24 BUN 12 mg/dL (6-20) 12/30/24: Creatinine 0.5 mg/dL (0.5-0.9) 12/30/24 GFR Calculation 126.7 mL/min (90-130) 12/30/24: Glucose 261 mg/dL (65-115) H 12/30/24 20: Calculated Osmolality 289 mOsm/kg (285-295) 12/30/24: Calcium 9.6 mg/dL (8.5-10.5) 12/30/24: Total Bilirubin 0.4 mg/dL (0.15-1.2) 12/30/24 20: AST 10 U/L (0-32) 12/30/24: ALT 13 U/L (0-33) 12/30/24: Alkaline Phosphatase 120 U/L (35-105) H 07/21/25 20:29 Total Protein 7.7 g/dL (6.6-8.7) 12/30/24 20:29 Albumin 4.3 g/dL (3.5-5.2) 12/30/24 20:29 Globulin 3.4 g/dL (1.3-4.6) 12/30/24 20:29 No radiology studies performed this visit Discharge Plan Discharge Patient Disposition: Home Clinical Impression: Syncope Condition: Stable Prescriptions: No Action (DME) C-PAP supplies See Rx Instructions .Route .MEDSUPPLY Qty: 1 12RF Rx Instructions: As directed (DME) cpap supplies See Rx Instructions .Route .MEDSUPPLY Qty: 1 0RF Rx Instructions: needs water tub, tubing, resmed shallow face or floating face mask, rubber pieces, filters. (DME) poise pads See Rx Instructions .Route .MEDSUPPLY Qty: 100 0RF Rx Instructions: As directed alprazolam 0.5 mg tablet 0.5 mg PO BID PRN (Reason: anxiety) 30 Days Qty: 60 4RF acetaminophen [Tylenol] 325 mg tablet 325 mg PO QID PRN ibuprofen 200 mg tablet 200 mg PO Q6H PRN garlic Tablet 300 mg PO DAILY cholecalciferol (vitamin D3) 25 mcg (1,000 unit) capsule 25 mcg PO DAILY cinnamon bark [Cinnamon] 500 mg capsule 500 mg PO DAILY turmeric 400 mg capsule 400 mg PO DAILY vitamin K2 100 mcg capsule 100 mcg PO DAILY (DME) sleep apnea machine with supplies See Rx Instructions .Route .MEDSUPPLY Qty: 1 0RF Rx Instructions: As directed. pressure at 8.4. ramp time 0. 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 epr level 1. ab filter no. (DME) OneTouch Ultra Test Strip See Rx Instructions .ROUTE .COMPLEX Qty: 150 3RF Dose Instruction: test DIRECTED THREE TIMES DAILY Rx Instructions: test DIRECTED THREE TIMES DAILY (DME) blood-glucose meter [Accu-Chek Guide Glucose Meter] Misc See Rx Instructions .Route Qty: 1 0RF Rx Instructions: As directed mupirocin 2 % ointment 1 applic topical TID Qty: 22 0RF triamcinolone acetonide 0.1 % cream 1 applic topical BID Qty: 30 0RF zolpidem [Ambien] 10 mg tablet 15 mg PO .Bedtime 30 Days Qty: 45 3RF sulfamethoxazole-trimethoprim [Bactrim DS] 800-160 mg tablet 1 tab PO BID Qty: 20 0RF prednisone 10 mg tablets,dose pack See Rx Instructions PO PER PKG DIR Qty: 21 0RF Rx Instructions: PO PER PKG DIR mupirocin [Centany] 2 % ointment 1 applic topical TID Qty: 15 2RF cetirizine 10 mg tablet See Rx Instructions .ROUTE .COMPLEX Qty: 30 5RF Dose Instruction: TAKE ONE TABLET BY MOUTH DAILY NEEDED FOR allergy symptoms Rx Instructions: TAKE ONE TABLET BY MOUTH DAILY NEEDED FOR allergy symptoms bupropion HCl [Wellbutrin SR] 150 mg tablet sustained-release 12 hr 150 mg PO BID 30 Days Qty: 60 4RF ondansetron 4 mg tablet,disintegrating 4 mg PO Q6H PRN (Reason: nausea and vomiting) Qty: 14 0RF Discharge Orders: Discharge ED (Routine); Ordered 12/30/24 Ordered By: Supa Castaneda Referrals: Ara Landon FNP-C [Primary Care Provider, Family Practice] Discharge Diet: Advance as tolerated Discharge Activity: Resume usual activity Patient Instructions: Syncope (ED) Print Language: German Coding Level of Care Code ED Dye Jig Operator for Pete Bustos
[2024-12-30 21:38] LABS: Alanine Aminotransferase 13 U/L (0-33); Albumin Level 4.3 g/dL (3.5-5.2); Alkaline Phosphatase 120 U/L (35-105); Anion Gap 20.5 (5-19); Aspartate Amino Transferase 10 U/L (0-32); Blood Urea Nitrogen 12 mg/dL (6-20); Calcium 9.6 mg/dL (8.5-10.5); Carbon Dioxide 22 mmol/L (22-29); Chloride 97 mmol/L (98-107); Creatinine Clr Calc Pharmacy 129.1587; Globulin 3.4 g/dL (1.3-4.6); Glucose 261 mg/dL (65-115); Osmolality Calculated 289 mOsm/kg (285-295); Potassium 4.5 mmol/L (3.5-5.1); Sodium 135 mmol/L (136-145); Total Protein 7.7 g/dL (6.6-8.7)
[2024-12-30 21:47] VITALS: BP 118/89; O2SAT 93
[2024-12-30 22:15] VITALS: BP 132/99; O2SAT 95
== END 2024-12-30 22:43 | disposition home or self-care (01) ==
PROVIDERS: Emergency Provider Emergency Medicine; PCP Nurse Practitioner Family
DX: R55 Syncope and collapse (principal); E11.9 Type 2 diabetes mellitus without complications; G47.33 Obstructive sleep apnea (adult) (pediatric); E78.5 Hyperlipidemia, unspecified; I10 Essential (primary) hypertension; F17.210 Nicotine dependence, cigarettes, uncomplicated; Z88.0 Allergy status to penicillin
CPT/HCPCS: 36415; 80053; 85025; 93005; 99284; J7030

== ENCOUNTER → 2025-01-21 13:46 | Outpatient (BNVA) | payer MEDICAID, SELFPAY | PROVIDERS: PCP Nurse Practitioner Family; Visit Provider Nurse Practitioner Family | DX: E11.65 Type 2 diabetes mellitus with hyperglycemia (principal); E78.5 Hyperlipidemia, unspecified | CPT/HCPCS: 80053; 80061; 83036; 83721; 84443; 85025 ==

== ENCOUNTER 2025-04-12 05:00 | Outpatient (CLI) | payer MEDICAID, SELFPAY | END 2025-04-12 05:01 | disposition home or self-care (01) | LOC: SPT 05-05 16:21 | PROVIDERS: Visit Provider Podiatrist Foot & Ankle Surgery | DX: Z46.89 Encounter for fitting and adjustment of other specified devices (principal); S92.341D Displaced fracture of fourth metatarsal bone, right foot, subsequent encounter for fracture with routine healing; W18.39XD Other fall on same level, subsequent encounter | CPT/HCPCS: 97760; L4361 ==

== ENCOUNTER 2025-04-22 16:05 | Outpatient (CLI) | payer MEDICAID, SELFPAY ==
--- NOTE | 2025-04-22 16:30 | XR_ITS ---
WS: [id number] Exam: XR foot RT min 3V* [id number] Date/Time of Exam: 04/22/2025 4:35 PM Reason For Exam: Contusion of right foot Comparison 04/27/2022. Probable nondisplaced fracture through the neck of the distal fourth metatarsal. No other fractures of the foot. Mild degenerative changes in the IP joints and midfoot joints. Unremarkable soft tissues. Large plantar heel spur. XR/XR foot RT min 3V* [id number] IMPRESSION: 1. Probable nondisplaced fracture of the neck of the distal fourth metatarsal.
== END 2025-04-22 16:06 | disposition home or self-care (01) ==
LOC: RAD 16:06
PROVIDERS: PCP Nurse Practitioner Family; Visit Provider Registered Nurse Neonatal Intensive Care
DX: S90.31XA Contusion of right foot, initial encounter (principal); X58.XXXA Exposure to other specified factors, initial encounter; M77.31 Calcaneal spur, right foot
CPT/HCPCS: 73630

== ENCOUNTER → 2025-05-14 13:01 | Outpatient (BNVA) | payer MEDICAID, SELFPAY | PROVIDERS: Visit Provider Podiatrist Foot & Ankle Surgery | DX: S92.341A Displaced fracture of fourth metatarsal bone, right foot, initial encounter for closed fracture (principal); X58.XXXA Exposure to other specified factors, initial encounter | CPT/HCPCS: 73630 ==